=== PATIENT | male | born 1975 | race Caucasian/White ===

== ENCOUNTER 2016-09-03 15:04 | Emergency (ER) | payer OTHER ==
[2016-09-03 15:24] VITALS: BP 110/78; PULSE 77; TEMP 98; BMI 26.6
[2016-09-03 16:09] LABS: PH,URINE 5.5 (5.0-8.0); URINE APPEARANCE CLEAR; URINE BILIRUBIN 1+ (NEGATIVE); URINE COLOR LT. YELLOW; URINE GLUCOSE (UA) NEGATIVE (NEGATIVE); URINE KETONE NEGATIVE (NEGATIVE); URINE LEUK ESTERASE NEGATIVE (NEGATIVE); URINE NITRITE NEGATIVE (NEGATIVE); URINE PROTEIN NEGATIVE (NEGATIVE); URINE UROBILINOGEN 0.2 E.U/dl E.U./dl (0.2-1.0)
--- NOTE | 2016-09-03 16:44 | PDOC ---
[id number] UTI Time Seen by Provider: 09/03/16 15:50 History Source: Patient Exam Limitations: No Limitations - History of Present Illness Travel History: No Initial Comments: 09/03/16 17:08 Patient is here with complaints of 3 years of dysuria. States has been unable to hold his urine which is progressively gotten worse over the past few months. Denies pain or burning with urine, denies any foul smell or discoloration, denies bleeding or dark discoloration. Denies any purulent drainage or history of STDs. Partner/ is asymptomatic. No history of kidney stone or any urinary problems. States is had multiple issues with low back spondylosis and disc herniations. Suffers from intermittent bouts of sciatica and has never been told he has any neurologic dysfunction due to same. Has never been evaluated for prostatitis, or seen a urologist. Denies fever, nausea vomiting diarrhea or constipation. Has taken no medication for relief of any of the symptoms. Timing/Duration: reports: getting worse, changing over time Quality: reports: mild, fullness, sharpness Pain Radiation: reports: no radiation Activities at Onset: reports: none Past History - Travel Traveled outside of the country in the last 30 days: No Close contact w/someone who was outside of country & ill: No - Past Medical History Allergies/Adverse Reactions: Allergies Allergy/AdvReac Type Severity Reaction Status Date / Time No Known Allergies Allergy Verified 09/03/16 15:24 Home Medications: Ambulatory Orders NK [No Known Home Medication] 06/06/16 Seizures: Yes - Surgical History Appendectomy: Yes - Immunization History Immunization Up to Date: Yes - Psycho/Social/Smoking Cessation Hx Anxiety: Yes Suicidal Ideation: No Smoking History: Current every day smoker Have you smoked in the past 12 months: No Number of Cigarettes Smoked Daily: 10 Information on smoking cessation initiated: No Hx Alcohol Use: No Drug/Substance Use Hx: No Substance Use Type: None Abd/GI Specific PMHX - Complaint Specific PMHX GERD: No Review of Systems - Review of Systems Able to Perform ROS?: Yes Is the patient limited Andorran proficient: Yes Constitutional: Yes: See HPI. No: Symptoms Reported, Fever HEENTM: No: Symptoms Reported Respiratory: No: Symptoms reported Cardiac (ROS): No: Symptoms Reported : Yes: Symptoms Reported, See HPI, Frequency. No: Hematuria, Incontinence, Pain Integumentary: Yes: Symptoms Reported *Physical Exam - Vital Signs Last Vital Signs Temp Pulse Resp BP Pulse Ox 98 F 77 18 110/78 97 09/03/16 15:16 09/03/16 15:16 09/03/16 15:16 09/03/16 15:16 09/03/16 15:16 - Physical Exam General Appearance: Yes: Nourished, Appropriately Dressed. No: Apparent Distress HEENT: positive: ZHANG, Normal ENT Inspection, TMs Normal, Pharynx Normal Neck: positive: Supple. 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 , will refer to orthopedist for further evaluation of neurogenic bladder and urologist for thorough evaluation for any other anatomical issue *DC/Admit/Observation/Transfer Diagnosis at time of Disposition: Dysuria - Discharge Dispostion Disposition: HOME Condition at time of disposition: Stable Admit: No - Referrals Referrals: Rashaun Rodriguez MD [Staff Physician] - James Li MD., [Staff Physician] - - Patient Instructions Printed Discharge Instructions: DI for Dysuria -- Adult Additional Instructions: Continue hydration Follow-up with orthopedist for thorough evaluation of neurologic statics of spine and bladder Consider urology (Dr. Li) for evaluation once cleared by orthopedist
[2016-09-03 20:50] LABS: URINE BLOOD 1+ (NEGATIVE)
[2016-09-03 22:45] LABS: CALCIUM OXALATE CRYSTALS FEW /hpf (NONE SEEN); URINE RBC 0-2 /hpf (0-3); URINE WBC 0-3 /hpf (3-5)
== END 2016-09-03 17:39 | disposition home or self-care (01) ==
LOC: JERFT 15:04
DX: R30.0 Dysuria (principal)
CPT/HCPCS: 81003; 81015; 99281-25

== ENCOUNTER 2017-04-21 14:01 | Emergency (ER) | payer OTHER ==
[2017-04-21 14:06] VITALS: BP 114/74; PULSE 65; TEMP 98; BMI 26.6
--- NOTE | 2017-04-21 15:13 | PDOC ---
History of Present Illness - General Chief Complaint: Pain, Acute Stated Complaint: SHOULDER PAIN Time Seen by Provider: 04/21/17 14:39 History Source: Patient Exam Limitations: No Limitations - History of Present Illness Initial Comments: 04/21/17 15:03 CHIEF COMPLAINT: Left shoulder pain only with adduction HISTORY OF PRESENT ILLNESS: Patient is a 42-year-old male presents emergency department for pain to left shoulder states when he moves or adducts his arm notes a clicking sound. Denies any injury. No deformity. Occurred: reports: yesterday Severity: reports: moderate Upper Extremity Pain Location: left: shoulder Method of Injury: reports: unknown Modifying Factors: improves with: None Past History - Past Medical History Allergies/Adverse Reactions: Allergies Allergy/AdvReac Type Severity Reaction Status Date / Time No Known Allergies Allergy Verified 04/21/17 14:07 Home Medications: Ambulatory Orders Ibuprofen [Motrin -] 600 mg PO QID #28 tablet 04/21/17 Seizures: Yes - Surgical History Appendectomy: Yes - Immunization History Immunization Up to Date: Yes - Psycho/Social/Smoking Cessation Hx Anxiety: Yes Suicidal Ideation: No Smoking History: Current every day smoker Have you smoked in the past 12 months: No Number of Cigarettes Smoked Daily: 10 Information on smoking cessation initiated: No Hx Alcohol Use: No Drug/Substance Use Hx: No Substance Use Type: None Review of Systems - Review of Systems Constitutional: No: Symptoms Reported HEENTM: No: Symptoms Reported Respiratory: No: Symptoms reported Cardiac (ROS): No: Symptoms Reported ABD/GI: No: Symptoms Reported : No: Symptoms Reported Musculoskeletal: Yes: Joint Pain. No: Joint Swelling, Muscle Pain, Muscle Weakness, Neck Pain, Joint Stiffness Integumentary: No: Symptoms Reported, Bruising, Erythema Neurological: No: Symptoms reported, Paresthesia, Tingling, Tremors All Other Systems: Reviewed and Negative *Physical Exam - Vital Signs Last Vital Signs Temp Pulse Resp BP Pulse Ox 98 F 65 18 114/74 98 04/21/17 14:04 04/21/17 14:04 04/21/17 14:04 04/21/17 14:04 04/21/17 14:04 - Physical Exam General Appearance: Yes: Appropriately Dressed. No: Apparent Distress Neck: negative: Tender lateral, Tender midline Respiratory/Chest: positive: Lungs Clear, Normal Breath Sounds. negative: Respiratory Distress, Accessory Muscle Use Cardiovascular: positive: Regular Rhythm, Regular Rate Lymphatic: negative: Adenopathy Musculoskeletal: positive: Normal Inspection. negative: Decreased Range of Motion, Muscle Spasm, Vertebral Tenderness Extremity: positive: Normal Capillary Refill, Normal Inspection, Normal Range of Motion (with associalted pain with adduction). negative: Delayed Capillary Refill, Swelling, Erythema, Inflammation Integumentary: positive: Normal Color, Dry. negative: Erythema, Swelling, Ecchymosis, Bruising Neurologic: positive: Alert, Normal Mood/Affect ED Treatment Course - RADIOLOGY Radiology Studies Ordered: Category Date Time Status SHOULDER-LEFT [RAD] Stat Radiology 04/21/17 14:41 Taken Medical Decision Making - Medical Decision Making 04/21/17 15:15 A/P: Patient with left shoulder pain only associated with certain movements patient with pain noted when crossing over midline of body, adduction. And to x-ray to rule out acute injury, highly suspicious for tendinitis there is no deformity which would be suggestive of a dislocation. 04/21/17 16:18 X-ray demonstrates posttraumatic ostiolysis of the distal clavicle. There is no acute bony injury. Will place patient in arm sling to follow-up with orthopedics. Anti-inflammatories for pain. I discussed the physical exam findings, ancillary test results and final diagnoses with the patient. I answered all of the patient's questions. The patient was satisfied with the care received and felt comfortable with the discharge plan and treatment plan. The patient will call orthopedics to arrange follow-up and will return to the Emergency Department with any new, persistent or worsening symptoms. 04/21/17 17:03 *DC/Admit/Observation/Transfer Diagnosis at time of Disposition: Shoulder pain Qualifiers: Chronicity: acute Laterality: left Qualified Code(s): M25.512 - Pain in left shoulder - Discharge Dispostion Disposition: HOME Condition at time of disposition: Stable Admit: No - Prescriptions Prescriptions: Ibuprofen [Motrin -] 600 mg PO QID #28 tablet - Referrals Referrals: Robin Parish MD [Staff Physician] - - Patient Instructions Printed Discharge Instructions: DI for Shoulder Pain Additional Instructions: 1. Please return to the emergency department with any redness, swelling, increased pain, or any other concerns. 2. Keep splint on. 3. Please follow up in the office of Dr. Bernard within a week if pain persists. 4. No weightbearing 5. Ice and elevate when at rest. 6. Anti-inflammatories for pain
== END 2017-04-21 16:37 | disposition home or self-care (01) ==
LOC: JERFT 14:01
DX: M25.512 Pain in left shoulder (principal); Z86.69 Personal history of other diseases of the nervous system and sense organs
CPT/HCPCS: 36415; 73030-TC-LT; 86803; 99281-25

== ENCOUNTER 2018-01-17 19:26 | Emergency (ER) | payer OTHER ==
[2018-01-17 19:37] VITALS: BP 155/108; PULSE 68; TEMP 98; BMI 29.5
--- NOTE | 2018-01-17 19:45 | PDOC ---
Rapid Medical Evaluation Chief Complaint: Urinary Problem Time Seen by Provider: 01/17/18 19:40 Medical Evaluation: Allergies Allergy/AdvReac Type Severity Reaction Status Date / Time No Known Allergies Allergy Verified 01/17/18 19:35 Vital Signs Temp Pulse Resp BP Pulse Ox 98 F 68 18 155/108 99 01/17/18 19:35 01/17/18 19:35 01/17/18 19:35 01/17/18 19:35 01/17/18 19:35 01/17/18 19:40 I have performed a brief in-person evaluation of this patient. The patient presents with a chief complaint of: dysuria/ inability to oid x 1 year worsening- told had "vein enlarged in left testicle" but never f/u wioth urology. Denies fevers or pain and burning/ + frequency Pertinent physical exam findings:Pale/ appears uncomfortable I have ordered the following: U/A / Culture , uS testicles /scrotum The patient will proceed to the ED for further evaluation 01/17/18 19:45
[2018-01-17 20:39] LABS: URINE APPEARANCE CLEAR; URINE BILIRUBIN NEGATIVE (<2.0 mg/dL); URINE BLOOD NEGATIVE (NEGATIVE); URINE COLOR LTYELLOW; URINE GLUCOSE (UA) NEGATIVE (NEGATIVE); URINE KETONE NEGATIVE (NEGATIVE); URINE LEUK ESTERASE NEGATIVE (NEGATIVE); URINE NITRITE NEGATIVE (NEGATIVE); URINE PROTEIN NEGATIVE (NEGATIVE); URINE UROBILINOGEN NEGATIVE mg/dL (0.2-1.0)
--- NOTE | 2018-01-17 22:21 | PDOC ---
History of Present Illness <YvesJose - Last Filed: 01/17/18 22:53> - General History Source: Patient Exam Limitations: No Limitations - History of Present Illness Initial Comments: 01/17/18 22:46 The patient is a 42 year old male with a significant PMH of ruptured lumbar disc and anxiety who presents to the emergency department with urinary urgency for 6 months. The patient reports that his urinary urgency is associated with sharp and constant pain in his left testicle and left leg. The patient reports that his left sided pain is worsened with walking and lifting. The patient reports that the pain starts from his left foot and radiates up his left leg to his left testicle and lower back. The patient states that his symptoms have worsened in the past month. He states that he has a ultrasound done 6 months ago by which he was found to have a varicose vein surrounding his testicle. The patient denies any other urinary symptoms. He denies fever, chills, nausea, vomit, diarrhea and constipation.The patient denies chest pain, shortness of breath, headache and dizziness. The patient denies any other complaints <Juan Diego Hendrix - Last Filed: 01/18/18 00:29> - General Chief Complaint: Urinary Problem Stated Complaint: PAIN Time Seen by Provider: 01/17/18 19:40 Past History - Past Medical History COPD: No Seizures: Yes Other medical history: back problems - Surgical History Appendectomy: Yes - Immunization History Immunization Up to Date: Yes - Suicide/Smoking/Psychosocial Hx Smoking History: Current every day smoker Have you smoked in the past 12 months: No Number of Cigarettes Smoked Daily: 10 Information on smoking cessation initiated: No Hx Alcohol Use: No Drug/Substance Use Hx: No Substance Use Type: None <Jose Marinelli - Last Filed: 01/17/18 22:53> <Juan Diego Hendrix - Last Filed: 01/18/18 00:29> - Past Medical History Allergies/Adverse Reactions: Allergies Allergy/AdvReac Type Severity Reaction Status Date / Time No Known Allergies Allergy Verified 01/17/18 19:35 Home Medications: Ambulatory Orders Ibuprofen [Motrin -] 600 mg PO QID #28 tablet 04/21/17 Review of Systems - Review of Systems Able to Perform ROS?: Yes Comments:: 01/17/18 22:47 ROS: A complete review of 10 out of 10 review of systems is taken and is negative apart from what is previously mentioned below and in the HPI. <Juan Diego Hendrix - Last Filed: 01/18/18 00:29> *Physical Exam - Vital Signs Last Vital Signs Temp Pulse Resp BP Pulse Ox 98 F 68 18 155/108 99 01/17/18 19:35 01/17/18 19:35 01/17/18 19:35 01/17/18 19:35 01/17/18 19:35 <Jose Marinelli - Last Filed: 01/17/18 22:53> - Vital Signs Last Vital Signs Temp Pulse Resp BP Pulse Ox 98 F 68 18 155/108 99 01/17/18 19:35 01/17/18 19:35 01/17/18 19:35 01/17/18 19:35 01/17/18 19:35 - Physical Exam Comments: 01/17/18 22:47 Vitals: Triage vital signs reviewed General Appearance: No acute distress, well nourished, well developed Head: Atraumatic Chest Wall: Nontender Cardiac: Regular rate and rhythm, no murmurs, no rubs, no gallops Lungs: Clear to auscultation bilateral, good air movement bilaterally Abdomen: Soft, nondistended, normal bowel sounds, nontender to palpation Genitourinary: Rectal: normal tone, no sensory loss, normal prostate. Extremities: Full range of motion to all extremities, no cyanosis, clubbing, or edema Skin: Warm and dry, no rashes or lesions, no rash, no petechiae Neuro: AOX3; Cranial Nerves 2-12 grossly intact, Strength intact to all extremities, Sensation intact to all extremities, Deep tendon normal and intact. gait normal Psych: Normal mood, normal affect <Juan Diego Hendrix - Last Filed: 01/18/18 00:29> ED Treatment Course - ADDITIONAL ORDERS Additional order review: Laboratory Results 01/17/18 19:49 Urine Color Ltyellow Urine Appearance Clear Urine pH 5.0 Ur Specific [place] 1.017 Urine Protein Negative Urine Glucose (UA) Negative Urine Ketones Negative Urine Blood Negative Urine Nitrite Negative Urine Bilirubin Negative Urine Urobilinogen Negative Ur Leukocyte Esterase Negative <Jose Marinelli - Last Filed: 01/17/18 22:53> - ADDITIONAL ORDERS Additional order review: Laboratory Results 01/17/18 19:49 Urine Color Ltyellow Urine Appearance Clear Urine pH 5.0 Ur Specific [place] 1.017 Urine Protein Negative Urine Glucose (UA) Negative Urine Ketones Negative Urine Blood Negative Urine Nitrite Negative Urine Bilirubin Negative Urine Urobilinogen Negative Ur Leukocyte Esterase Negative <Juan Diego Hendrix - Last Filed: 01/18/18 00:29> Medical Decision Making - Medical Decision Making 01/17/18 22:34 42 years old with 6 month history of sensation of urinary urgency as well as a intermittent pain with ambulation that radiates from his heel to his buttock. Patient denies any fever patient denies any weight loss denies any recent IV drug use. Patient was seen and evaluated for similar 6 months ago had an ultrasound performed which demonstrated mild hydrocele was instructed to follow up with urology which he did not. He denies any incontinence he denies any weakness numbness in his lower extremities His testicular examination demonstrated no hernia, no tenderness to palpation no swelling no mass no evidence of torsion His musculoskeletal back exam demonstrates piriformis tenderness his neurologic examination was intact distally. His reflexes were intact distally in his rectal examination demonstrated good tone and no S1-S2 anesthesia There were no red flags at this time on patient's chronicity of patients history and his physical examination. Most likely patient's symptomatology are related to radiculopathy from a low back issue I have provided the patient with C-spine follow-up as well as urology follow-up I provided the patient with 3 days off from work. He will make phone calls tomorrow morning to arrange follow-up. Next, the need for follow-up, strict return instructions discussed with patient. <Jose Marinelli - Last Filed: 01/17/18 22:53> - Medical Decision Making 01/17/18 22:49 The patient is a 42 year old male with a significant PMH of ruptured lumbar disc and anxiety who presents to the emergency department with urinary urgency for 6 months. The patient reports that his urinary urgency is associated with sharp and constant pain in his left testicle and left leg. The patient reports that his left sided pain is worsened with walking and lifting. The patient reports that the pain starts from his left foot and radiates up his left leg to his left testicle and lower back. The patient states that his symptoms have worsened in the past month. He states that he has a ultrasound done 6 months ago by which he was found to have a varicose vein surrounding his testicle. The patient denies any other urinary symptoms. He denies fever, chills, nausea, vomit, diarrhea and constipation.The patient denies chest pain, shortness of breath, headache and dizziness. The patient denies any other complaints The patient will get an ultrasound, referral for a urologist and neurologist and will get prescription for ainti inflammatory medication <Juan Diego Hendrix - Last Filed: 01/18/18 00:29> *DC/Admit/Observation/Transfer - Discharge Dispostion Decision to Admit order: No <Jose Marinelli - Last Filed: 01/17/18 22:53> - Attestations Scribe Attestion: 01/17/18 22:51 Documentation prepared by Juan Diego Hendrix, acting as site medical director for Jose Marinelli MD. <Juan Diego Hendrix - Last Filed: 01/18/18 00:29> Diagnosis at time of Disposition: Low back pain Qualifiers: Chronicity: unspecified Back pain laterality: left Sciatica presence: with sciatica Sciatica laterality: sciatica of left side Qualified Code(s): M54.42 - Lumbago with sciatica, left side - Discharge Dispostion Disposition: HOME Condition at time of disposition: Stable - Referrals Referrals: Obey Brar MD, FA[facility] [Staff Physician] - James Li MD., [Staff Physician] - - Patient Instructions Printed Discharge Instructions: Sciatica Additional Instructions: Rest. Ice lower back 20 minutes on 20 minutes off. Take 2 tabs Aleve twice a day for the next 3 days. Follow-up with spine within 1-2 days as well as with Dr. Olsen urology. Return to the emergency department immediately for any weakness numbness bowel or bladder incontinence or for any concerns. - Post Discharge Activity Forms/Work/School Notes: Back to Work
== END 2018-01-17 22:53 | disposition home or self-care (01) ==
LOC: JER 19:26
DX: M54.42 Lumbago with sciatica, left side (principal); Z86.69 Personal history of other diseases of the nervous system and sense organs; F17.210 Nicotine dependence, cigarettes, uncomplicated
CPT/HCPCS: 76870-TC; 81003; 87086; 99281-25

== ENCOUNTER 2019-02-28 12:41 | Inpatient (IN) | payer OTHER ==
--- NOTE | 2019-02-28 12:51 | PDOC ---
Rapid Medical Evaluation Time Seen by Provider: 02/28/19 12:50 Medical Evaluation: Allergies Allergy/AdvReac Type Severity Reaction Status Date / Time No Known Allergies Allergy Verified 01/17/18 19:35 02/28/19 12:51 I have performed a brief in-person evaluation of this patient. The patient presents with a chief complaint of: L 3rd finger pain/swelling and erythema x 1 week. Also noted pus to site yesterday. No f/c. 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 States he was seen at [facility] last week for L 3rd digit and was not started on abx. States sxs have been worsening. Pertinent physical exam findings:L 3rd digit diffusely swollen, erythematous and ttp w/ minimal BRB visualized at tuft, no nail seen (2/2 prior injury per pt ) s/p L 5th digit amputation I have ordered the following:labs/XR The patient will proceed to the ED for further evaluation. Discharge Disposition - Diagnosis Cellulitis, finger Qualifiers: Laterality: right Qualified Code(s): L03.011 - Cellulitis of right finger - Referrals - Patient Instructions - Post Discharge Activity
[2019-02-28] MEDS ORDERED: VANCOMYCIN 1 GM in D5W (PRE-DOCKED) 1,000 MG/250 ML IVPB ONE (14:07)
[2019-02-28] MEDS ORDERED: AMPICILLIN NA/SULBACTAM NA 3 GM in SODIUM CHLORIDE 100 ML IVPB ONE (14:07)
--- NOTE | 2019-02-28 14:07 | PDOC ---
History of Present Illness - General Chief Complaint: Redness To Affected Area Stated Complaint: EDEMA Time Seen by Provider: 02/28/19 12:50 - History of Present Illness Initial Comments: 02/28/19 13:59 43yo M hx L 5th digit amputation and L 2/3/4 digit nerve surgeries w/hardware and residual numbness presents from home c/o L 3rd finger swelling and redness. Pt had multiple surgeries of L digits, with last one over a year ago, at [facility]. Pt has appt with hand surgeon on . Pt did have a complication of L 2nd finger infection, resolved with abx over a year ago. Now pt has had swelling and redness of L 3rd finger x1wk, worsening, spreading to dorsal hand. Pt has chronic loss of sensation in digits so denies pain but now has pain to dorsum of hand. Pt also hit his hand on the counter a few days ago and the nail of his 3rd digit came off with mild bleeding, stopped now. Pt has been cleaning the finger with betadyne. Denies F/C, N/V, CP, SOB, weakness, N/T, confusion, abdominal pain. Takes ibuprofen for pain in dorsum of hand. Does not want to be admitted. Past History - Past Medical History Allergies/Adverse Reactions: Allergies Allergy/AdvReac Type Severity Reaction Status Date / Time No Known Allergies Allergy Verified 02/28/19 12:58 Home Medications: Ambulatory Orders Bupropion HCl [Wellbutrin Xl -] 150 mg PO DAILY #30 tab.sr.24h 03/09/18 Methadone HCl 150 mg PO DAILY 03/09/18 COPD: No Seizures: Yes - Surgical History Appendectomy: Yes - Immunization History Immunization Up to Date: Yes - Suicide/Smoking/Psychosocial Hx Smoking History: Unknown if ever smoked Have you smoked in the past 12 months: No Number of Cigarettes Smoked Daily: 10 Information on smoking cessation initiated: No Hx Alcohol Use: No Drug/Substance Use Hx: No Substance Use Type: None Review of Systems - Review of Systems Comments:: 02/28/19 16:55 Constitutional: Negative for chills, fever, fatigue. HENT: Negative for sore throat, rhinorrhea, congestion. Eyes: Negative for visual disturbance. Respiratory: Negative for shortness of breath, cough, and wheezing. Cardiovascular: Negative for chest pain, palpitations, and leg swelling. Gastrointestinal: Negative for abdominal pain, blood in stool, constipation, diarrhea, nausea, and vomiting. Genitourinary: Negative for dysuria, flank pain, and hematuria. Musculoskeletal: Positive for L 5th digit swelling and redness and avulsed nail , L dorsum hand redness/swelling/pain, L 5th digit amputation (surgical >1yr ago ; well-healing). Negative for myalgias, back pain, and neck pain. Skin: Negative for rash. Neurological: Negative for light-headedness, dizziness, syncope, weakness, numbness and headaches. Psychiatric/Behavioral: Negative for behavioral problems and confusion. *Physical Exam - Vital Signs Last Vital Signs Temp Pulse Resp BP Pulse Ox 88 16 125/76 100 02/28/19 12:53 02/28/19 12:53 02/28/19 12:53 02/28/19 12:53 - Physical Exam Comments: 02/28/19 14:00 Gen: Alert, NAD, comfortable-appearing. HEENT: PERRL, EOMI, MMM, NCAT. No conjunctival pallor. Sclera are non-icteric. Oropharynx is clear. CV: Regular rate and rhythm. No murmurs, rubs, or gallops. PULM: No resp distress. CTAB, no wheezes, rales, or rhonchi. ABD: soft, NT/ND, no rebound tenderness or guarding, no CVA tenderness. BACK: No TTP of c/t/l-spine. No step-offs or deformities. MSK: 2+ pulses in all extremities. LEFT HAND: s/p 5th digit amputation at MCP. 3rd digit w/circumferential erythema and soft tissue edema, distal induration, complete nail avulsion, and bloody/purulent abrasion at fingertip. Proximal tracking of erythema over L dorsum hand to wrist. Full ROM of wrist and all 3rd digit. Loss of sensation in 3rd digit (baseline). TTP of dorsum hand. Normal capillary refill in 3rd digit. NEURO: AAOx3. PERRL. No gross CN deficits. Strength and sensation grossly intact throughout, except as noted in L hand. EXTREMITIES: See LEFT HAND. No cyanosis. No clubbing. No LE edema. PSYCH: Normal mood and thought pattern. SKIN: Warm and dry. Normal capillary refill. No jaundice. 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 Pt has baseline loss of sensation to digit, but has TTP to dorsum of L hand. Intact cap refill, full ROM. No concern for flexor tendinitis. Baseline neurologic compromise - no sensation in L 3rd digit. No vascular compromise. High concern for cellulitis vs OM - XR, labs, admit for IV abx, consult Hand. Hemodynamically stable, afebrile. -Labs: CBC, CMP, ESR, CRP -Imaging: XR L 3rd digit -Vanc and Unasyn -Consult hand -Dispo: pt refuses to be admitted; discuss later XR: deformity with possible postsurgical change and/or some destruction involving the distal phalanx. There is some swelling. If concerned about OM, 3= phase bone scan pr MR is suggested. 5th digit amputation w/base of proximal phalanc remaining. Notes reviewed. WBC 9.2, H/H 11.4/33.1, CRP 3.8, pESR. Discussed results with pt and our recommendation to be admitted for IV abx. Pt agrees and will stay. Pt does not want to be transferred to [facility]. 02/28/19 15:[address] 40[address] Hand paged Dr Manav Burton. 02/28/19 16:[address] Burton. Agrees with IV abx. Will see on floor. MDMB Admitting. 02/28/19 17:14 Signed out to admitting team. Attending Dr. Call. *DC/Admit/Observation/Transfer Diagnosis at time of Disposition: Cellulitis, finger Qualifiers: Laterality: right Qualified Code(s): L03.011 - Cellulitis of right finger - Discharge Dispostion Condition at time of disposition: Stable Decision to Admit order: Yes - Referrals - Patient Instructions - Post Discharge Activity
[2019-02-28] MEDS ORDERED: VANCOMYCIN 1 GRAM (PRE-DOCKED) 1,000 MG/250 ML BAG IVPB ONE (14:26)
[2019-02-28 14:33] LABS: BASO % 0.6 % (0-2.0); EOS % 3.3 % (0-4.5); HEMATOCRIT 33.1 % (35.4-49); HEMOGLOBIN 11.4 GM/dL (11.7-16.9); LYMPH % 29.4 % (8-40); MCH 29.6 pg (25.7-33.7); MCHC 34.5 g/dl (32.0-35.9); MEAN CELL VOLUME 85.7 fl (80-96); MEAN PLT VOLUME 6.7 fl (7.5-11.1); NEUT % 60.7 % (42.8-82.8); PLATELET COUNT 294 K/MM3 (134-434); RBC 3.86 M/mm3 (4.00-5.60); RDW 14.2 % (11.9-15.9); WHITE BLOOD COUNT 9.2 K/mm3 (4.0-10.0)
[2019-02-28 15:03] LABS: ALBUMIN 3.6 g/dl (3.4-5.0); BILIRUBIN,TOTAL 0.2 mg/dL (0.2-1); BLOOD UREA NITROGEN 9.4 mg/dL (7-18); CALCIUM 8.8 mg/dL (8.5-10.1); CREATININE 0.9 mg/dL (0.55-1.3); POTASSIUM 4.3 mmol/L (3.5-5.1); TOT PROT 6.7 g/dl (6.4-8.2)
--- NOTE | 2019-02-28 15:29 | PDOC ---
Attending Attestation - Resident Resident Name: Gena Gardner - ED Attending Attestation I have performed the following: I have examined & evaluated the patient, The case was reviewed & discussed with the resident, I agree w/resident's findings & plan - HPI HPI: 02/28/19 15:24 43-year-old male with history of left hand injury requiring reconstruction status post left fifth digit amputation and neurovascular reconstruction of third and fourth digits presents now with progressive redness and swelling and pain and purulence of the third digit over the last week. No fevers or chills, sustained an injury about 10 days ago secondary to decreased sensation, had avulsion of the nail, and has had progressive infection since then. Spoke to his hand surgeon [facility], referred to the emergency department. - Physicial Exam PE: 02/28/19 15:26 Vital signs stable. Well-appearing, alert Left hand: Status post amputation of left fifth digit at MCP. Circumferential erythema and soft tissue swelling of the third digit with induration distally and complete nail avulsion, abrasion at the fingertip with blood/pus oozing. Tracking cellulitis proximally over the dorsal aspect of the left hand to the wrist, full range of motion of wrist without joint effusion. Able to extend and flex the third digit, has decreased sensation so unable to assess tenderness. - Medical Decision Making 02/28/19 15:27 43-year-old male with history of reconstructive hand surgery presents with left third digit cellulitis tracking to the hand, has hardware in that digit as nerve conduit, no systemic symptoms. Possible osteomyelitis. Labs sent Left hand x-ray with bony changes that are either postoperative or consistent with osteomyelitis Antibiotic coverage with vancomycin and Unasyn Hand consult - patient refuses to be transferred to [facility] because he lives nearby Admission for IV antibiotics 02/28/19 16:[address] Burton, will see patient in consultation. proceed with [facility] admission.
[2019-02-28] MEDS ORDERED: ACETAMINOPHEN 325 MG TABLET (FP) PO PRN ×2 (17:13→18:26)
--- NOTE | 2019-02-28 17:55 | HP ---
Admitting History and Physical - Primary Care Physician PCP: n/a - Admission Chief Complaint: left middle finger pain History of Present Illness: 43 year old male history of IVDA, history of left hand injury requiring reconstruction status post left fifth digit amputation and neurovascular reconstruction of third and fourth digits requiring hardware presents after a 3 day history of left third digit swelling, drainage, and pain. He was unable to flex finger so he came to ED for further evaluation. Patient is unhappy with his surgery at [facility] so he decided to come here. He denies fever /chills, nausea vomiting. He stats for the past few weeks left hand has been numb but he wasn't sure if that was old or new. History Source: Patient Limitations to Obtaining History: No Limitations - Past Medical History Infectious Disease: Yes: Other Psych: Yes: Addictions (Hx IVDA) - Past Surgical History Past Surgical History: Yes: Amputation (lfet fifth finger and tip of left middle finger), Appendectomy Additional Past Surgical History: left hand nerve surgeries - Smoking History Smoking history: Current every day smoker Have you smoked in the past 12 months: Yes Aproximately how many cigarettes per day: 10 If you are a former smoker, when did you quit?: 1 PPD daily - Alcohol/Substance Use Hx Alcohol Use: No History of Substance Use: reports: Heroin Date of Last Use: 08/16/12 - Social History Usual Living Arrangement: Yes: With Spouse ADL: Independent Occupation: [employer] History of Recent Travel: No Home Medications - Allergies Allergies/Adverse Reactions: Allergies Allergy/AdvReac Type Severity Reaction Status Date / Time No Known Allergies Allergy Verified 02/28/19 12:58 - Home Medications Home Medications: Ambulatory Orders Bupropion HCl [Wellbutrin Xl -] 150 mg PO DAILY #30 tab.sr.24h 03/09/18 Methadone HCl 150 mg PO DAILY 03/09/18 Family Disease History - Family Disease History Family History: Unremarkable Review of Systems - Review of Systems Constitutional: reports: No Symptoms Eyes: reports: No Symptoms HENT: reports: No Symptoms Neck: reports: No Symptoms Cardiovascular: reports: No Symptoms Respiratory: reports: No Symptoms Gastrointestinal: reports: No Symptoms Genitourinary: reports: No Symptoms Breasts: reports: No Symptoms Reported Musculoskeletal: reports: Joint Pain, Joint Swelling (left middle finger pain and swelling) Integumentary: reports: Erythema (left hand and wrist) Neurological: reports: No Symptoms Endocrine: reports: No Symptoms Hematology/Lymphatic: reports: No Symptoms Psychiatric: reports: No Symptoms Physical Examination Vital Signs: Vital Signs Temperature Pulse Rate 88 02/28/19 12:53 Respiratory Rate 16 02/28/19 12:53 Blood Pressure 125/76 02/28/19 12:53 O2 Sat by Pulse Oximetry (%) 100 02/28/19 12:53 Constitutional: Yes: Well Nourished, Poor Hygeine, Other (nodding off) Neck: Yes: WNL, Supple, Trachea Midline Cardiovascular: Yes: WNL, Regular Rate and Rhythm Respiratory: Yes: WNL, Regular, CTA Bilaterally Gastrointestinal: Yes: WNL, Normal Bowel Sounds, Soft Extremities: Yes: Other (left middle finger amputated nail bed, erythematous, edematous, unable to flex, amputated left 5th finger erythema and edema extending to left hand and wrist, good pulses) Edema: Yes Edema: LUE: 1+ Peripheral Pulses WNL: Yes Labs: CBC, BMP 02/28/19 14:10 02/28/19 14:10 Imaging - Results X-ray: Report Reviewed Problem List - Problems (1) Cellulitis, finger Code(s): L03.019 - CELLULITIS OF UNSPECIFIED FINGER Qualifiers: Laterality: right Qualified Code(s): L03.011 - Cellulitis of right finger (2) Methadone maintenance therapy patient Code(s): F11.20 - OPIOID DEPENDENCE, UNCOMPLICATED Assessment/Plan 43 year old male with a PMHx of reconstructive hand surgery requiring hardware, presents with left third digit cellulitis 1) Left third digit cellulitis -xray either post op changes or osteomyelitis -rule out osteomyelitis -check inflammatory markers -check MRI -IV abx-vanco and unasyn -wound cultures -pain control -Dr. Burton (plastic and hand surgery) was consulted, ED physician spoke with him and he confirmed he will be seeing patient -ID consult 2) Methadone dependence -confirm dose in AM DVT ppx -hep subq
[2019-02-28] MEDS: SODIUM CHLORIDE 1,000 ML IV SCH (18:13)
[2019-02-28] MEDS ORDERED: HEPARIN NA (PORCINE) 5,000 UNITS/ML 1ML VIAL ONE (20:19)
[2019-02-28] MEDS: AMPICILLIN NA/SULBACTAM NA 3 GM in SODIUM CHLORIDE 100 ML IVPB SCH (20:33)
[2019-02-28] MEDS: HEPARIN NA (PORCINE) 5,000 UNITS/ML 1ML VIAL SQ SCH (21:38)
[2019-03-01 02:40] VITALS: BMI 32.5
[2019-03-01] MEDS: AMPICILLIN NA/SULBACTAM NA 3 GM in SODIUM CHLORIDE 100 ML IVPB SCH ×4 (03:22→20:24)
[2019-03-01] MEDS ORDERED: PT OWN MED DRAWER 7, Y5N ONE ×3 (06:21→20:03)
--- NOTE | 2019-03-01 08:48 | PN ---
Physical Exam: SUBJECTIVE: Patient seen and examined. Laying in bed with street clothes on with no signs or symptoms of distress. Pt states he is anxious and asks for Ativan, and that he smokes a pack a day and wants a nicotine patch. He denies fever/chills, nausea vomiting. OBJECTIVE: Vital Signs Period Temp Pulse Resp BP Sys/Cho Pulse Ox Last 24 Hr 97.8 F-97.8 F 61-88 16-20 114-147/62-80 100-100 Eyes: reports: No Symptoms HENT: reports: No Symptoms Neck: reports: No Symptoms Cardiovascular: reports: No Symptoms Respiratory: reports: No Symptoms Gastrointestinal: reports: No Symptoms Genitourinary: reports: No Symptoms Integumentary: reports: Wound on the tip of left 3rd finger, two open areas, no active bleeding, no puss expressed. Warm, erythema, and edematous Neurological: reports: No Symptoms Endocrine: reports: No Symptoms Hematology/Lymphatic: reports: No Symptoms Psychiatric: reports: No Symptoms Laboratory Results - last 24 hr 02/28/19 02/28/19 02/28/19 14:10 14:10 14:10 WBC 9.2 RBC 3.86 L Hgb 11.4 L Hct 33.1 L MCV 85.7 MCH 29.6 MCHC 34.5 RDW 14.2 Plt Count 294 MPV 6.7 L D Absolute Neuts (auto) 5.5 Neutrophils % 60.7 D Lymphocytes % 29.4 D Monocytes % 6.0 Eosinophils % 3.3 Basophils % 0.6 Nucleated RBC % 0 ESR 40 H Sodium 137 Potassium 4.3 Chloride 106 Carbon Dioxide 28 Anion Gap 4 L BUN 9.4 Creatinine 0.9 Est GFR (CKD-EPI)AfAm 121.67 Est GFR (CKD-EPI)NonAf 104.98 Random Glucose 154 H Calcium 8.8 Total Bilirubin 0.2 AST 24 ALT 42 Alkaline Phosphatase 96 C-Reactive Protein 3.8 H Total Protein 6.7 Albumin 3.6 Active Medications Generic Name Dose Route Start Last Admin Trade Name Freq PRN Reason Stop Dose Admin Acetaminophen 650 mg 02/28/19 17:13 Tylenol - PO Q4H PRN MILD PAIN Bupropion HCl 150 mg 03/01/19 10:00 Wellbutrin Xl - PO DAILY JOSEPH Heparin Sodium (Porcine) 5,000 unit 02/28/19 22:00 02/28/19 21:38 Heparin - SQ 5,000 unit BID JOSEPH Administration Sodium Chloride 1,000 mls @ 100 mls/hr 02/28/19 17:15 02/28/19 18:13 Normal Saline - IV 100 mls/hr ASDIR JOSEPH Administration Ampicillin Sodium/Sulbactam 100 mls @ 200 mls/hr 02/28/19 21:00 03/01/19 03: 22 Sodium 3 gm/ Sodium Chloride IVPB 200 mls/hr Q6H-IV JOSEPH Administration ASSESSMENT/PLAN: 43 year old male history of IVDA, history of left hand injury requiring reconstruction status post left fifth digit amputation and neurovascular reconstruction of third and fourth digits requiring hardware presents after a 3 day history of left third digit swelling, drainage, and pain. Cellulitis-Left 3rd Digit -Per ID Consult (Dr. Barron) -will continue unasyn -plastics to have a look at the patient -MRI Ordered -Wound Cultures pending -Dr. Burton (Plastics and Hand) was consulted, ED physician spoke with him and he confirmed he will be seeing patient. Called his office today, and he was in surgery. Message left. Methadone Dependence -Verification complete, Last dose 02/27 -Start Methadone 165 mg PO Daily Tobacco Cessation -pack a day smoker -Nicotine Patch 14mg TD Daily F/E/N -F- PO intake adequate -E- Replete as indicated -N-Regular Diet DVT Prophylaxis Early ambulation Subq Heparin 5000unit subQ BID Dispo Maintain as inpatient Full Code Visit type - Emergency Visit Emergency Visit: Yes ED Registration Date: 02/28/19 Care time: The patient presented to the Emergency Department on the above date and was hospitalized for further evaluation of their emergent condition. - New Patient This patient is new to me today: Yes Date on this admission: 03/01/19 - Critical Care Critical Care patient: No
[2019-03-01 09:08] LABS: EOS % 3.8 % (0-4.5); HEMATOCRIT 33.5 % (35.4-49); HEMOGLOBIN 11.3 GM/dL (11.7-16.9); LYMPH % 29.7 % (8-40); MCH 29.5 pg (25.7-33.7); MCHC 33.7 g/dl (32.0-35.9); MEAN CELL VOLUME 87.4 fl (80-96); MEAN PLT VOLUME 6.7 fl (7.5-11.1); MONO % 7.1 % (3.8-10.2); NEUT % 58.4 % (42.8-82.8); PLATELET COUNT 258 K/MM3 (134-434); RBC 3.83 M/mm3 (4.00-5.60); RDW 14.4 % (11.9-15.9); WHITE BLOOD COUNT 6.2 K/mm3 (4.0-10.0)
[2019-03-01] MEDS ORDERED: METHADONE HCL 10 MG TABLET PO SCH (09:15)
[2019-03-01 09:37] LABS: CALCIUM 8.5 mg/dL (8.5-10.1); CREATININE 0.9 mg/dL (0.55-1.3); POTASSIUM 4.3 mmol/L (3.5-5.1)
[2019-03-01] MEDS ORDERED: METHADONE HCL 5 MG TABLET ONE (09:54)
[2019-03-01] MEDS ORDERED: METHADONE HCL 40 MG DISPERSABLE TABLET ONE (09:54)
[2019-03-01] MEDS: METHADONE 160 MG, METHADONE 5 MG PO SCH (10:09)
[2019-03-01] MEDS: SODIUM CHLORIDE 1,000 ML IV SCH ×2 (10:10→15:03)
[2019-03-01] MEDS: HEPARIN NA (PORCINE) 5,000 UNITS/ML 1ML VIAL SQ SCH ×2 (10:10→22:30)
--- NOTE | 2019-03-01 12:49 | CON.ID ---
Consult Consult Specialty:: infectious diseases Referred by:: Reason for Consultation:: hand wound infection - History of Present Illness Chief Complaint: ulcer and wound of the left ring finger tip History of Present Illness: 43 year old male history of IVDA, history of left hand injury requiring reconstruction status post left fifth digit amputation and neurovascular reconstruction of third and fourth digits requiring hardware presents after a 3 day history of left third digit swelling, drainage, and pain. He was unable to flex finger so he came to ED for further evaluation. Patient is unhappy with his surgery at [facility] so he decided to come here. He denies fever /chills, nausea vomiting. He stats for the past few weeks left hand has been numb but he wasn't sure if that was old or new. patient mentions that he thinks he burnt his finger as he had no sensation now the wound has dressng over the wound and unable to see how bad the wound is patient has been started on abx - History Source History Provided By: Patient Limitations to Obtaining History: No Limitations - Past Medical History Infectious Disease: Yes: Other Psych: Yes: Addictions (Hx IVDA) - Past Surgical History Past Surgical History: Yes: Amputation (lfet fifth finger and tip of left middle finger), Appendectomy - Alcohol/Substance Use Hx Alcohol Use: No History of Substance Use: reports: Heroin Date of Last Use: 08/16/12 - Smoking History Smoking history: Current every day smoker Have you smoked in the past 12 months: Yes Aproximately how many cigarettes per day: 10 If you are a former smoker, when did you quit?: 1 PPD daily - Social History ADL: Independent Occupation: [employer] History of Recent Travel: No Home Medications - Allergies Allergies/Adverse Reactions: Allergies Allergy/AdvReac Type Severity Reaction Status Date / Time No Known Allergies Allergy Verified 02/28/19 12:58 - Home Medications Home Medications: Ambulatory Orders Bupropion HCl [Wellbutrin Xl -] 150 mg PO DAILY #30 tab.sr.24h 03/09/18 Methadone HCl 150 mg PO DAILY 03/09/18 Review of Systems - Review of Systems Constitutional: reports: No Symptoms Eyes: reports: No Symptoms HENT: reports: No Symptoms Neck: reports: No Symptoms Cardiovascular: reports: No Symptoms Respiratory: reports: No Symptoms Gastrointestinal: reports: No Symptoms Genitourinary: reports: No Symptoms Musculoskeletal: reports: Other Integumentary: reports: Wound (on the tip of left 3rd finger) Neurological: reports: No Symptoms Endocrine: reports: No Symptoms Hematology/Lymphatic: reports: No Symptoms Psychiatric: reports: No Symptoms Physical Exam Vital Signs: Vital Signs Temperature 97.8 F 03/01/19 04:56 Pulse Rate 61 03/01/19 04:56 Respiratory Rate 20 03/01/19 04:56 Blood Pressure 114/67 03/01/19 04:56 O2 Sat by Pulse Oximetry (%) 100 02/28/19 22:19 Constitutional: Yes: Well Nourished, No Distress, Calm Cardiovascular: Yes: Regular Rate and Rhythm Respiratory: Yes: Regular, CTA Bilaterally Gastrointestinal: Yes: Normal Bowel Sounds, Soft Musculoskeletal: Yes: WNL Extremities: Yes: Other Wound/Incision: Yes: Dressing Dry and Intact Neurological: Yes: Alert, Oriented Psychiatric: Yes: Alert, Oriented Labs: CBC, BMP 03/01/19 08:25 03/01/19 08:25 Assessment/Plan Problem List - Problems (1) Cellulitis, finger Code(s): L03.019 - CELLULITIS OF UNSPECIFIED FINGER Qualifiers: Laterality: right Qualified Code(s): L03.011 - Cellulitis of right finger (2) Methadone maintenance therapy patient Code(s): F11.20 - OPIOID DEPENDENCE, UNCOMPLICATED Assessment/Plan 43 year old male with a PMHx of reconstructive hand surgery requiring hardware, presents with left third digit cellulitis 1) Left third digit cellulitis plan will continue unasyn plastics to have a look at the patient will see how the wound loks rest as per the team
[2019-03-01] MEDS: NICOTINE 14 MG/24 HOURS TOPICAL PATCH TD SCH (15:03)
[2019-03-02] MEDS ORDERED: PT OWN MED DRAWER 7, Y5N ONE ×3 (02:11→19:56)
[2019-03-02] MEDS: AMPICILLIN NA/SULBACTAM NA 3 GM in SODIUM CHLORIDE 100 ML IVPB SCH ×4 (02:22→21:02)
[2019-03-02] MEDS ORDERED: METHADONE HCL 40 MG DISPERSABLE TABLET ONE (05:57)
[2019-03-02] MEDS ORDERED: METHADONE HCL 5 MG TABLET ONE (05:57)
[2019-03-02] MEDS: METHADONE 160 MG, METHADONE 5 MG PO SCH (06:06)
[2019-03-02] MEDS: HEPARIN NA (PORCINE) 5,000 UNITS/ML 1ML VIAL SQ SCH ×2 (10:49→21:02)
[2019-03-02] MEDS: NICOTINE 14 MG/24 HOURS TOPICAL PATCH TD SCH (10:49)
--- NOTE | 2019-03-02 13:06 | PN ---
Progress Note, Physician History of Present Illness: hand swelling has decreased a lot patient says he feels better - Current Medication List Current Medications: Active Medications Acetaminophen (Tylenol -) 650 mg PO Q4H PRN PRN Reason: MILD PAIN Bupropion HCl (Wellbutrin Xl -) 150 mg PO DAILY [facility] Last Admin: 03/02/19 10:49 Dose: 150 mg Heparin Sodium (Porcine) (Heparin -) 5,000 unit SQ BID [facility] Last Admin: 03/02/19 10:49 Dose: 5,000 unit Ampicillin Sodium/Sulbactam (Sodium 3 gm/ Sodium Chloride) 100 mls @ 200 mls/ hr IVPB Q6H-IV [facility] Last Admin: 03/02/19 10:49 Dose: 200 mls/hr Sodium Chloride (Normal Saline -) 1,000 mls @ 10 mls/hr IV ASDIR [facility] Last Admin: 03/01/19 15:03 Dose: Not Given Methadone HCl 160 mg/ (Methadone HCl 5 mg) 165 mg PO DAILY@0600 [facility] Last Admin: 03/02/19 06:06 Dose: 165 mg Nicotine (Nicoderm Patch -) 14 mg TD DAILY [facility] Last Admin: 03/02/19 10:49 Dose: 14 mg - Objective Vital Signs: Vital Signs Temperature 97.8 F 03/02/19 06:00 Pulse Rate 59 L 03/02/19 06:00 Respiratory Rate 20 03/02/19 06:00 Blood Pressure 117/72 03/02/19 06:00 O2 Sat by Pulse Oximetry (%) 100 02/28/19 22:19 Constitutional: Yes: No Distress, Calm Cardiovascular: Yes: S1, S2 Respiratory: Yes: Regular, CTA Bilaterally Gastrointestinal: Yes: Normal Bowel Sounds, Soft Musculoskeletal: Yes: WNL Extremities: Yes: Other Wound/Incision: Yes: Dressing Dry and Intact Neurological: Yes: Alert, Oriented Psychiatric: Yes: Alert, Oriented Labs: CBC, BMP 03/01/19 08:25 03/01/19 08:25 Assessment/Plan Problem List - Problems (1) Cellulitis, finger Code(s): L03.019 - CELLULITIS OF UNSPECIFIED FINGER Qualifiers: Laterality: right Qualified Code(s): L03.011 - Cellulitis of right finger (2) Methadone maintenance therapy patient Code(s): F11.20 - OPIOID DEPENDENCE, UNCOMPLICATED Assessment/Plan 43 year old male with a PMHx of reconstructive hand surgery requiring hardware, presents with left third digit cellulitis 1) Left third digit cellulitis plan continue abx will see how the hand looks tomorrow if it looks better will switch to oral
--- NOTE | 2019-03-02 14:47 | PN ---
Progress Note, Physician Chief Complaint: left middle finger swelling History of Present Illness: no acute events overnight feeling well, no complaints. pain and swelling decreased - Current Medication List Current Medications: Active Medications Acetaminophen (Tylenol -) 650 mg PO Q4H PRN PRN Reason: MILD PAIN Bupropion HCl (Wellbutrin Xl -) 150 mg PO DAILY [facility] Last Admin: 03/02/19 10:49 Dose: 150 mg Heparin Sodium (Porcine) (Heparin -) 5,000 unit SQ BID [facility] Last Admin: 03/02/19 10:49 Dose: 5,000 unit Ampicillin Sodium/Sulbactam (Sodium 3 gm/ Sodium Chloride) 100 mls @ 200 mls/ hr IVPB Q6H-IV [facility] Last Admin: 03/02/19 10:49 Dose: 200 mls/hr Sodium Chloride (Normal Saline -) 1,000 mls @ 10 mls/hr IV ASDIR [facility] Last Admin: 03/01/19 15:03 Dose: Not Given Methadone HCl 160 mg/ (Methadone HCl 5 mg) 165 mg PO DAILY@0600 [facility] Last Admin: 03/02/19 06:06 Dose: 165 mg Nicotine (Nicoderm Patch -) 14 mg TD DAILY [facility] Last Admin: 03/02/19 10:49 Dose: 14 mg - Objective Vital Signs: Vital Signs Temperature 98.2 F 03/02/19 14:29 Pulse Rate 76 03/02/19 14:29 Respiratory Rate 20 03/02/19 14:29 Blood Pressure 128/83 03/02/19 14:29 O2 Sat by Pulse Oximetry (%) 100 02/28/19 22:19 Constitutional: Yes: Well Nourished, No Distress, Calm Cardiovascular: Yes: WNL, Regular Rate and Rhythm Respiratory: Yes: WNL, Regular, CTA Bilaterally Gastrointestinal: Yes: WNL, Normal Bowel Sounds, Soft Musculoskeletal: Yes: Other (left middle finger wrapped, swelling and erythema much improved, able to flex finger) Extremities: Yes: WNL Edema: No Labs: CBC, BMP 03/01/19 08:25 03/01/19 08:25 Problem List - Problems (1) Cellulitis, finger Code(s): L03.019 - CELLULITIS OF UNSPECIFIED FINGER Qualifiers: Laterality: right Qualified Code(s): L03.011 - Cellulitis of right finger (2) Methadone maintenance therapy patient Code(s): F11.20 - OPIOID DEPENDENCE, UNCOMPLICATED Assessment/Plan 43 year old male with a PMHx of reconstructive hand surgery requiring hardware, presents with left third digit cellulitis 1) Left third digit cellulitis -xray either post op changes or osteomyelitis -MRI pending -cw IV abx -wound cultures pending -pain control -Dr. Burton (plastic and hand surgery) was consulted, ED physician spoke with him and he confirmed he will be seeing patient, called 3 times and messages left -ID eval appreciated 2) Methadone dependence -cw methadone -tobacco cessation counseling DVT ppx -hep subq
[2019-03-02] MEDS: SODIUM CHLORIDE 1,000 ML IV SCH (16:19)
[2019-03-03] MEDS: AMPICILLIN NA/SULBACTAM NA 3 GM in SODIUM CHLORIDE 100 ML IVPB SCH ×4 (03:00→22:40)
[2019-03-03] MEDS ORDERED: METHADONE HCL 5 MG TABLET ONE (05:20)
[2019-03-03] MEDS ORDERED: METHADONE HCL 40 MG DISPERSABLE TABLET ONE (05:20)
[2019-03-03] MEDS: METHADONE 160 MG, METHADONE 5 MG PO SCH (05:32)
[2019-03-03 07:36] LABS: BASO % 1.1 % (0-2.0); EOS % 5.6 % (0-4.5); HEMATOCRIT 35.3 % (35.4-49); LYMPH % 26.9 % (8-40); MCH 29.4 pg (25.7-33.7); MCHC 33.9 g/dl (32.0-35.9); MEAN CELL VOLUME 86.6 fl (80-96); MEAN PLT VOLUME 6.7 fl (7.5-11.1); MONO % 7.4 % (3.8-10.2); RBC 4.08 M/mm3 (4.00-5.60); RDW 14.3 % (11.9-15.9); WHITE BLOOD COUNT 6.2 K/mm3 (4.0-10.0)
[2019-03-03 08:22] LABS: PLATELET COUNT 260 K/MM3 (134-434)
[2019-03-03] MEDS ORDERED: PT OWN MED DRAWER 7, Y5N ONE ×3 (08:59→21:21)
[2019-03-03] MEDS: NICOTINE 14 MG/24 HOURS TOPICAL PATCH TD SCH (09:36)
[2019-03-03] MEDS: HEPARIN NA (PORCINE) 5,000 UNITS/ML 1ML VIAL SQ SCH ×2 (09:37→22:45)
[2019-03-03 10:04] LABS: ANISOCYTOSIS 0; MACROCYTOSIS 0; PLATELET ESTIMATE NORMAL
[2019-03-03] MEDS ORDERED: LORazepam 1 MG TABLET PO ONE ×2 (13:56→19:00)
--- NOTE | 2019-03-03 13:57 | PN ---
Progress Note, Physician Chief Complaint: left hand 3rd digit cellulitis History of Present Illness: Patient is a 43 year old male history of IVDA, history of left hand injury requiring reconstruction status post left fifth digit amputation and vascular reconstruction of third and fourth digits requiring hardware presents after a 3 day history of left third digit swelling, drainage and pain. He was unable to flex finger so he came to ED for further evaluation. He denies fever/chills, nausea vomiting. He stats for the past few weeks left hand has been numb but he wasn't sure if that was old or new. He is for an MRI of left hand today to rule out osteomyelitis. - Current Medication List Current Medications: Active Medications Acetaminophen (Tylenol -) 650 mg PO Q4H PRN PRN Reason: MILD PAIN Bupropion HCl (Wellbutrin Xl -) 150 mg PO DAILY [facility] Last Admin: 03/03/19 09:37 Dose: 150 mg Heparin Sodium (Porcine) (Heparin -) 5,000 unit SQ BID [facility] Last Admin: 03/03/19 09:37 Dose: 5,000 unit Ampicillin Sodium/Sulbactam (Sodium 3 gm/ Sodium Chloride) 100 mls @ 200 mls/ hr IVPB Q6H-IV [facility] Last Admin: 03/03/19 09:36 Dose: 200 mls/hr Sodium Chloride (Normal Saline -) 1,000 mls @ 10 mls/hr IV ASDIR [facility] Last Admin: 03/02/19 16:19 Dose: Not Given Methadone HCl 160 mg/ (Methadone HCl 5 mg) 165 mg PO DAILY@0600 [facility] Last Admin: 03/03/19 05:32 Dose: 165 mg Nicotine (Nicoderm Patch -) 14 mg TD DAILY [facility] Last Admin: 03/03/19 09:36 Dose: 14 mg - Objective Vital Signs: Vital Signs Temperature 98.2 F 03/03/19 05:00 Pulse Rate 61 03/03/19 05:00 Respiratory Rate 20 03/03/19 05:00 Blood Pressure 114/70 03/03/19 05:00 O2 Sat by Pulse Oximetry (%) 100 02/28/19 22:19 Constitutional: Yes: Well Nourished, No Distress, Calm Eyes: Yes: WNL HENT: Yes: WNL Neck: Yes: WNL Cardiovascular: Yes: WNL, Regular Rate and Rhythm Respiratory: Yes: WNL Gastrointestinal: Yes: Normal Bowel Sounds ...Rectal Exam: Yes: WNL Genitourinary: Yes: WNL Breast(s): Yes: WNL Musculoskeletal: Yes: WNL Extremities: Yes: WNL Integumentary: Yes: WNL Wound/Incision: Yes: Clean/Dry Neurological: Yes: WNL ...Motor Strength: LUE (unable to feel his digits, since his injury last year) Psychiatric: Yes: Alert, Oriented Labs: CBC, BMP 03/03/19 06:40 03/01/19 08:25 Problem List - Problems (1) Cellulitis, finger Assessment/Plan: Left third digit cellulitis -xray either post op changes or osteomyelitis -MRI pending to rule out osteo. will need ativan 2mg prior to mri for claustrophobia. -continue IV abx per ID -wound cultures pending -pain control with toradol -Dr. Burton (plastic and hand surgery) was consulted Code(s): L03.019 - CELLULITIS OF UNSPECIFIED FINGER Qualifiers: Laterality: right Qualified Code(s): L03.011 - Cellulitis of right finger (2) Methadone maintenance therapy patient Assessment/Plan: on methadone Code(s): F11.20 - OPIOID DEPENDENCE, UNCOMPLICATED (3) Opiate dependence Assessment/Plan: hx of iv drug use Code(s): F11.20 - OPIOID DEPENDENCE, UNCOMPLICATED (4) Prophylactic measure Assessment/Plan: fen tolerating po monitor electrolytes low salt diet pain control prophy on heparin will consult OT therapy. Code(s): Z29.9 - ENCOUNTER FOR PROPHYLACTIC MEASURES, UNSPECIFIED Visit type - Emergency Visit Emergency Visit: Yes ED Registration Date: 02/28/19 Care time: The patient presented to the Emergency Department on the above date and was hospitalized for further evaluation of their emergent condition. - New Patient This patient is new to me today: Yes Date on this admission: 03/03/19 - Critical Care Critical Care patient: No
[2019-03-03] MEDS: SODIUM CHLORIDE 1,000 ML IV SCH (14:39)
[2019-03-03] MEDS ORDERED: KETOROLAC TROMETHAMINE 10 MG TABLET PO PRN (15:54)
--- NOTE | 2019-03-03 16:24 | PN ---
Progress Note, Physician History of Present Illness: Pt seen and examined, events noted. States he feels well. Has no specific complaints. - Current Medication List Current Medications: Active Medications Acetaminophen (Tylenol -) 650 mg PO Q4H PRN PRN Reason: MILD PAIN Bupropion HCl (Wellbutrin Xl -) 150 mg PO DAILY [facility] Last Admin: 03/03/19 09:37 Dose: 150 mg Heparin Sodium (Porcine) (Heparin -) 5,000 unit SQ BID [facility] Last Admin: 03/03/19 09:37 Dose: 5,000 unit Ampicillin Sodium/Sulbactam (Sodium 3 gm/ Sodium Chloride) 100 mls @ 200 mls/ hr IVPB Q6H-IV [facility] Last Admin: 03/03/19 14:42 Dose: 200 mls/hr Sodium Chloride (Normal Saline -) 1,000 mls @ 10 mls/hr IV ASDIR [facility] Last Admin: 03/03/19 14:39 Dose: 10 mls/hr Ketorolac Tromethamine (Toradol) 10 mg PO Q6HPO PRN PRN Reason: PAIN LEVEL 7 - 10 Stop: 03/08/19 17:59 Methadone HCl 160 mg/ (Methadone HCl 5 mg) 165 mg PO DAILY@0600 [facility] Last Admin: 03/03/19 05:32 Dose: 165 mg Nicotine (Nicoderm Patch -) 14 mg TD DAILY [facility] Last Admin: 03/03/19 09:36 Dose: 14 mg - Objective Vital Signs: Vital Signs Temperature 97.9 F 03/03/19 15:37 Pulse Rate 75 03/03/19 15:37 Respiratory Rate 20 03/03/19 15:37 Blood Pressure 128/85 03/03/19 15:37 O2 Sat by Pulse Oximetry (%) 100 02/28/19 22:19 Constitutional: Yes: No Distress, Calm Cardiovascular: Yes: Regular Rate and Rhythm Respiratory: Yes: Regular Gastrointestinal: Yes: Normal Bowel Sounds, Soft Wound/Incision: Yes: Dressing Dry and Intact, Other (Lt 3rd finger less erythema /edema) Neurological: Yes: Alert, Oriented Labs: CBC, BMP 03/03/19 06:40 03/01/19 08:25 - ....Imaging X-ray: Report Reviewed MRI: Pending Problem List - Problems (1) Cellulitis, finger Code(s): L03.019 - CELLULITIS OF UNSPECIFIED FINGER Qualifiers: Laterality: right Qualified Code(s): L03.011 - Cellulitis of right finger (2) Methadone maintenance therapy patient Code(s): F11.20 - OPIOID DEPENDENCE, UNCOMPLICATED (3) Opiate dependence Code(s): F11.20 - OPIOID DEPENDENCE, UNCOMPLICATED Assessment/Plan Lt 3rd digit cellulitis r/o OM -- wound culture results noted -- awaiting MRI/hand surgery evaluation -- continue IV antibiotics for now
[2019-03-04] MEDS ORDERED: PT OWN MED DRAWER 7, Y5N ONE ×2 (01:38→09:39)
[2019-03-04] MEDS: AMPICILLIN NA/SULBACTAM NA 3 GM in SODIUM CHLORIDE 100 ML IVPB SCH ×2 (02:11→09:53)
[2019-03-04] MEDS ORDERED: METHADONE HCL 40 MG DISPERSABLE TABLET ONE (06:07)
[2019-03-04] MEDS ORDERED: METHADONE HCL 5 MG TABLET ONE (06:07)
[2019-03-04] MEDS: METHADONE 160 MG, METHADONE 5 MG PO SCH (06:23)
--- NOTE | 2019-03-04 08:33 | PN ---
Physical Exam: SUBJECTIVE: Patient seen and examined. Pt seen and examined. Lt had edema/ erythema resolving. Pt remains afebrile, without new complaints. Pt denies CP, Fever, chill, N/V/D. Spent time with patient discussing options regarding the diagnosis of Osteomyelitis, per MRI. PT wanted to leave AMA. Pt decides to stay and weight for possibility of getting a PICC line Wednesday. ID will speak with patient about treatment needs. OBJECTIVE: Vital Signs Period Temp Pulse Resp BP Sys/Cho Pulse Ox Last 24 Hr 97.5 F-98.1 F 52-75 20-20 105-131/49-85 Constitutional: Yes: No Distress, Calm Cardiovascular: Yes: Regular Rate and Rhythm Respiratory: Yes: Regular Gastrointestinal: Yes: Normal Bowel Sounds, Soft Genitourinary: Yes: WNL Wound/Incision: Yes: Dressing Dry and Intact, Other (Lt hand/finger resolving edema/erythema Lt 3rd digit dressing intact) Neurological: Yes: Alert, Oriented Labs: Laboratory Results - last 24 hr 03/03/19 06:40 Neutrophils % (Manual) 57.3 Band Neutrophils % 0.0 Lymphocytes % (Manual) 26.2 Monocytes % (Manual) 4 Eosinophils % (Manual) 7.8 H Basophils % (Manual) 0.0 Myelocytes % (Man) 1 Promyelocytes % (Man) 0 Blast Cells % (Manual) 0 Nucleated RBC % 0 Metamyelocytes 2 Hypochromia 0 Platelet Estimate Normal Polychromasia 0 Poikilocytosis 0 Anisocytosis 0 Microcytosis 0 Macrocytosis 0 Active Medications Generic Name Dose Route Start Last Admin Trade Name Freq PRN Reason Stop Dose Admin Acetaminophen 650 mg 02/28/19 17:13 Tylenol - PO Q4H PRN MILD PAIN Bupropion HCl 150 mg 03/01/19 10:00 03/03/19 09:37 Wellbutrin Xl - PO 150 mg DAILY [facility] Administration Heparin Sodium (Porcine) 5,000 unit 02/28/19 22:00 03/03/19 22:45 Heparin - SQ 5,000 unit BID [facility] Administration Ampicillin Sodium/Sulbactam 100 mls @ 200 mls/hr 02/28/19 21:00 03/04/19 02: 11 Sodium 3 gm/ Sodium Chloride IVPB 200 mls/hr Q6H-IV [facility] Administration Sodium Chloride 1,000 mls @ 10 mls/hr 03/01/19 13:30 03/03/19 14:39 Normal Saline - IV 10 mls/hr ASDIR [facility] Administration Ketorolac Tromethamine 10 mg 03/03/19 15:54 Toradol PO 03/08/19 17:59 Q6HPO PRN PAIN LEVEL 7 - 10 Methadone HCl 160 mg/ 165 mg 03/01/19 09:30 03/04/19 06:23 Methadone HCl 5 mg PO 165 mg DAILY@0600 [facility] Administration Nicotine 14 mg 03/01/19 13:15 03/03/19 09:36 Nicoderm Patch - TD 14 mg DAILY [facility] Administration ASSESSMENT/PLAN: (1) Cellulitis, finger Assessment/Plan: Left third digit cellulitis -MRI results positive for Osteomyelitis -continue IV abx per ID -wound cultures pending -pain control with toradol -Dr. Burton (plastic and hand surgery) was consulted Code(s): L03.019 - CELLULITIS OF UNSPECIFIED FINGER Qualifiers: Laterality: right Qualified Code(s): L03.011 - Cellulitis of right finger (2) Methadone maintenance therapy patient Assessment/Plan: on methadone Code(s): F11.20 - OPIOID DEPENDENCE, UNCOMPLICATED (3) Opiate dependence Assessment/Plan: hx of iv drug use Code(s): F11.20 - OPIOID DEPENDENCE, UNCOMPLICATED (4) Prophylactic measure Assessment/Plan: fen tolerating po monitor electrolytes low salt diet pain control prophy on heparin will consult OT therapy. Code(s): Z29.9 - ENCOUNTER FOR PROPHYLACTIC MEASURES, UNSPECIFIED Visit type - Emergency Visit Emergency Visit: Yes ED Registration Date: 02/28/19 Care time: The patient presented to the Emergency Department on the above date and was hospitalized for further evaluation of their emergent condition. - New Patient This patient is new to me today: No - Critical Care Critical Care patient: No
[2019-03-04 08:40] LABS: ALBUMIN 3.4 g/dl (3.4-5.0); BILIRUBIN,TOTAL 0.3 mg/dL (0.2-1); BLOOD UREA NITROGEN 15.7 mg/dL (7-18); CALCIUM 8.8 mg/dL (8.5-10.1); MAGNESIUM 2.5 mg/dL (1.8-2.4); POTASSIUM 4.5 mmol/L (3.5-5.1); TOT PROT 6.9 g/dl (6.4-8.2)
[2019-03-04] MEDS: HEPARIN NA (PORCINE) 5,000 UNITS/ML 1ML VIAL SQ SCH ×2 (09:53→21:51)
[2019-03-04] MEDS: NICOTINE 14 MG/24 HOURS TOPICAL PATCH TD SCH (09:53)
[2019-03-04 10:28] LABS: BASO % 1.2 % (0-2.0); EOS % 4.5 % (0-4.5); HEMATOCRIT 36.9 % (35.4-49); HEMOGLOBIN 12.5 GM/dL (11.7-16.9); LYMPH % 26.6 % (8-40); MCH 29.5 pg (25.7-33.7); MCHC 33.9 g/dl (32.0-35.9); MEAN CELL VOLUME 87.2 fl (80-96); MEAN PLT VOLUME 6.9 fl (7.5-11.1); NEUT % 60.7 % (42.8-82.8); PLATELET COUNT 257 K/MM3 (134-434); RBC 4.24 M/mm3 (4.00-5.60); RDW 14.5 % (11.9-15.9); WHITE BLOOD COUNT 6.2 K/mm3 (4.0-10.0)
[2019-03-04 12:19] LABS: ANISOCYTOSIS 0; MACROCYTOSIS 0; PLATELET ESTIMATE NORMAL
[2019-03-04] MEDS: SODIUM CHLORIDE 1,000 ML IV SCH (13:47)
--- NOTE | 2019-03-04 15:25 | PN ---
Progress Note, Physician History of Present Illness: Pt seen and examined. Lt had edema/erythema resolving. Pt remains afebrile, without new complaints. - Current Medication List Current Medications: Active Medications Acetaminophen (Tylenol -) 650 mg PO Q4H PRN PRN Reason: MILD PAIN Bupropion HCl (Wellbutrin Xl -) 150 mg PO DAILY [facility] Last Admin: 03/04/19 09:53 Dose: 150 mg Heparin Sodium (Porcine) (Heparin -) 5,000 unit SQ BID [facility] Last Admin: 03/04/19 09:53 Dose: 5,000 unit Ampicillin Sodium/Sulbactam (Sodium 3 gm/ Sodium Chloride) 100 mls @ 200 mls/ hr IVPB Q6H-IV [facility] Last Admin: 03/04/19 09:53 Dose: 200 mls/hr Sodium Chloride (Normal Saline -) 1,000 mls @ 10 mls/hr IV ASDIR [facility] Last Admin: 03/04/19 13:47 Dose: 10 mls/hr Ketorolac Tromethamine (Toradol) 10 mg PO Q6HPO PRN PRN Reason: PAIN LEVEL 7 - 10 Stop: 03/08/19 17:59 Methadone HCl 160 mg/ (Methadone HCl 5 mg) 165 mg PO DAILY@0600 [facility] Last Admin: 03/04/19 06:23 Dose: 165 mg Nicotine (Nicoderm Patch -) 14 mg TD DAILY [facility] Last Admin: 03/04/19 09:53 Dose: 14 mg - Objective Vital Signs: Vital Signs Temperature 97.5 F L 03/04/19 14:00 Pulse Rate 60 03/04/19 14:00 Respiratory Rate 20 03/04/19 14:00 Blood Pressure 138/95 03/04/19 14:00 O2 Sat by Pulse Oximetry (%) 100 02/28/19 22:19 Constitutional: Yes: No Distress, Calm Cardiovascular: Yes: Regular Rate and Rhythm Respiratory: Yes: Regular Gastrointestinal: Yes: Normal Bowel Sounds, Soft Genitourinary: Yes: WNL Wound/Incision: Yes: Dressing Dry and Intact, Other (Lt hand/finger resolving edema/erythema Lt 3rd digit dressing intact) Neurological: Yes: Alert, Oriented Labs: CBC, BMP 03/04/19 07:25 03/04/19 07:27 Microbiology 03/01/19 01:05 Finger - Left Middle Finger Gram Stain - Final 03/01/19 01:05 Finger - Left Middle Finger Wound Culture - Final Staphylococcus Aureus Staphylococcus Coagulase Neg - ....Imaging MRI: Pending Problem List - Problems (1) Cellulitis, finger Code(s): L03.019 - CELLULITIS OF UNSPECIFIED FINGER Qualifiers: Laterality: right Qualified Code(s): L03.011 - Cellulitis of right finger (2) Methadone maintenance therapy patient Code(s): F11.20 - OPIOID DEPENDENCE, UNCOMPLICATED (3) Opiate dependence Code(s): F11.20 - OPIOID DEPENDENCE, UNCOMPLICATED Assessment/Plan Lt 3rd digit/hand cellulitis r/o OM Hx of reconstructive surgey -- MRI official results pending, discussed with radiology by [employer] COUNSELOR - preliminary result shows likely OM -- Wound cultures +Staph aureus -- will switch to Ceftriaxone 2 grams IV daily x will likely need 5wks based on official MRI result -- weekly cbc/cmp/esr/crp -- surgical f/u -- continue wound care discussed with [facility] [place]
[2019-03-04] MEDS ORDERED: CEFTRIAXONE 2 GM in DEXTROSE 5%-WATER 100 ML IVPB SCH (15:30)
[2019-03-04] MEDS ORDERED: DEXTROSE 5%-WATER 100 ML IVPB ONE (15:49)
[2019-03-04] MEDS: CEFTRIAXONE 2 GM in DEXTROSE 5%-WATER 100 ML IVPB SCH (15:50)
[2019-03-05] MEDS ORDERED: METHADONE HCL 5 MG TABLET ONE (05:57)
[2019-03-05] MEDS ORDERED: METHADONE HCL 40 MG DISPERSABLE TABLET ONE (05:57)
[2019-03-05] MEDS: METHADONE 160 MG, METHADONE 5 MG PO SCH (06:06)
[2019-03-05] MEDS: AMPICILLIN NA/SULBACTAM NA 3 GM in SODIUM CHLORIDE 100 ML IVPB SCH (07:26)
[2019-03-05 07:32] LABS: EOS % 4.1 % (0-4.5); HEMATOCRIT 39.2 % (35.4-49); HEMOGLOBIN 13.2 GM/dL (11.7-16.9); LYMPH % 29.6 % (8-40); MCH 29.5 pg (25.7-33.7); MCHC 33.6 g/dl (32.0-35.9); MEAN CELL VOLUME 87.8 fl (80-96); MEAN PLT VOLUME 6.7 fl (7.5-11.1); MONO % 6.6 % (3.8-10.2); NEUT % 58.7 % (42.8-82.8); PLATELET COUNT 288 K/MM3 (134-434); RBC 4.46 M/mm3 (4.00-5.60); RDW 14.7 % (11.9-15.9); WHITE BLOOD COUNT 8.7 K/mm3 (4.0-10.0)
[2019-03-05 08:02] LABS: BILIRUBIN,TOTAL 0.3 mg/dL (0.2-1); BLOOD UREA NITROGEN 17.8 mg/dL (7-18); CALCIUM 9.4 mg/dL (8.5-10.1); CREATININE 1.2 mg/dL (0.55-1.3); MAGNESIUM 2.6 mg/dL (1.8-2.4); POTASSIUM 4.4 mmol/L (3.5-5.1); TOT PROT 7.8 g/dl (6.4-8.2)
--- NOTE | 2019-03-05 09:44 | PN ---
Physical Exam: SUBJECTIVE: Patient seen and examined. Patient seen and examined. Pt seen and examined. Lt had edema/erythema resolving. Pt remains afebrile, without new complaints. Pt denies CP, Fever, chill, N/V/D. Spent time with patient discussing options regarding the diagnosis of Osteomyelitis, per MRI. PT wanted to leave AMA. Pt decides to stay and weight for possibility of getting a PICC line Wednesday. ID will speak with patient about treatment needs. OBJECTIVE: Vital Signs Period Temp Pulse Resp BP Sys/Cho Pulse Ox Last 24 Hr 97.5 F-97.9 F 60-69 20-20 115-144/67-98 GENERAL: The patient is awake, alert, and fully oriented, in no acute distress. HEAD: Normal with no signs of trauma. EYES: PERRL, extraocular movements intact, sclera anicteric, conjunctiva clear. No ptosis. ENT: Ears normal, nares patent, oropharynx clear without exudates, moist mucous membranes. NECK: Trachea midline, full range of motion, supple. LUNGS: Breath sounds equal, clear to auscultation bilaterally, no wheezes, no crackles, no accessory muscle use. HEART: Regular rate and rhythm, S1, S2 without murmur, rub or gallop. ABDOMEN: Soft, nontender, nondistended, normoactive bowel sounds, no guarding, no rebound, no hepatosplenomegaly, no masses. EXTREMITIES: 2+ pulses, warm, well-perfused, no edema. NEUROLOGICAL: Cranial nerves II through XII grossly intact. Normal speech, gait not observed. PSYCH: Normal mood, normal affect. SKIN: Warm, dry, normal turgor, no rashes or lesions noted Laboratory Results - last 24 hr 03/04/19 03/05/19 03/05/19 07:25 06:30 06:30 WBC 6.2 8.7 RBC 4.24 4.46 Hgb 12.5 13.2 Hct 36.9 39.2 MCV 87.2 87.8 MCH 29.5 29.5 MCHC 33.9 33.6 RDW 14.5 14.7 Plt Count 257 288 MPV 6.9 L 6.7 L Absolute Neuts (auto) 3.8 5.1 Neutrophils % 60.7 58.7 Neutrophils % (Manual) 61.0 Band Neutrophils % 0.0 Lymphocytes % 26.6 29.6 Lymphocytes % (Manual) 26.0 Monocytes % 7.0 6.6 Monocytes % (Manual) 4 Eosinophils % 4.5 4.1 Eosinophils % (Manual) 7.0 H Basophils % 1.2 1.0 Basophils % (Manual) 0.0 Myelocytes % (Man) 1 Promyelocytes % (Man) 0 Blast Cells % (Manual) 0 Nucleated RBC % 0 0 Metamyelocytes 0 D Hypochromia 0 Platelet Estimate Normal Polychromasia 0 Poikilocytosis 0 Anisocytosis 0 Microcytosis 0 Macrocytosis 0 Sodium 137 Potassium 4.4 Chloride 102 Carbon Dioxide 28 Anion Gap 8 BUN 17.8 Creatinine 1.2 Est GFR (CKD-EPI)AfAm 85.92 Est GFR (CKD-EPI)NonAf 74.14 Random Glucose 112 H Calcium 9.4 Magnesium 2.6 H Total Bilirubin 0.3 AST 52 H ALT 80 H Alkaline Phosphatase 110 Total Protein 7.8 Albumin 4.0 Active Medications Generic Name Dose Route Start Last Admin Trade Name Freq PRN Reason Stop Dose Admin Acetaminophen 650 mg 02/28/19 17:13 Tylenol - PO Q4H PRN MILD PAIN Bupropion HCl 150 mg 03/01/19 10:00 03/04/19 09:53 Wellbutrin Xl - PO 150 mg DAILY [facility] Administration Heparin Sodium (Porcine) 5,000 unit 02/28/19 22:00 03/04/19 21:51 Heparin - SQ 5,000 unit BID [facility] Administration Sodium Chloride 1,000 mls @ 10 mls/hr 03/01/19 13:30 03/04/19 13:47 Normal Saline - IV 10 mls/hr ASDIR [facility] Administration Ceftriaxone Sodium 2 gm/ 100 mls @ 200 mls/hr 03/04/19 15:45 03/04/19 15:50 Dextrose IVPB 200 mls/hr DAILY [facility] Administration Protocol Ketorolac Tromethamine 10 mg 03/03/19 15:54 Toradol PO 03/08/19 17:59 Q6HPO PRN PAIN LEVEL 7 - 10 Methadone HCl 160 mg/ 165 mg 03/01/19 09:30 03/05/19 06:06 Methadone HCl 5 mg PO 165 mg DAILY@0600 [facility] Administration Nicotine 14 mg 03/01/19 13:15 03/04/19 09:53 Nicoderm Patch - TD 14 mg DAILY [facility] Administration ASSESSMENT/PLAN: Cellulitis, finger Left third digit cellulitis -MRI results positive for Osteomyelitis -continue IV abx per ID -wound cultures pending -pain control with toradol -Dr. Burton (plastic and hand surgery) was consulted Methadone maintenance therapy patient -methadone 165mg PO Daily Opiate dependence -hx of iv drug use Diabetes Type 2 Newly Diagnosed -HgA1c 6.7 -Will manage with sliding scale and diet while inpatient. -Discussed with patient the importance of following up with Primary Care Doctor to receive treatment after discharge FEN -tolerating po -monitor electrolytes -Diabetic Diet -pain control DVT Prophy on heparin Visit type - Emergency Visit Emergency Visit: Yes ED Registration Date: 02/28/19 Care time: The patient presented to the Emergency Department on the above date and was hospitalized for further evaluation of their emergent condition. - New Patient This patient is new to me today: No - Critical Care Critical Care patient: No
[2019-03-05] MEDS ORDERED: DEXTROSE 5%-WATER 100 ML IVPB ONE (10:06)
[2019-03-05] MEDS: HEPARIN NA (PORCINE) 5,000 UNITS/ML 1ML VIAL SQ SCH ×2 (10:08→21:30)
[2019-03-05] MEDS: NICOTINE 14 MG/24 HOURS TOPICAL PATCH TD SCH (10:09)
[2019-03-05] MEDS: CEFTRIAXONE 2 GM in DEXTROSE 5%-WATER 100 ML IVPB SCH (10:09)
[2019-03-05 10:58] LABS: EPI CELLS 0.5 /HPF (0-5/HPF); HYALINE CASTS 2 /lpf (0-8); PH,URINE 5.5 (5.0-8.0); URINE APPEARANCE CLEAR; URINE BACTERIA 1.4 /hpf (NEGATIVE); URINE BILIRUBIN NEGATIVE (NEGATIVE); URINE COLOR YELLOW; URINE GLUCOSE (UA) NEGATIVE (NEGATIVE); URINE KETONE NEGATIVE (NEGATIVE); URINE LEUK ESTERASE NEGATIVE (NEGATIVE); URINE NITRITE NEGATIVE (NEGATIVE); URINE PROTEIN NEGATIVE (NEGATIVE); URINE RBC 1 /hpf (0-4); URINE UROBILINOGEN 0.2 mg/dL (0.2-1.0); URINE WBC 1 /hpf (0-5)
[2019-03-05 11:17] LABS: COCAINE, UR NEGATIVE ng/ml (CUTOFF=300); OPIATES, URI NEGATIVE ng/ml (CUTOFF=300); PHENCYCLIDINE,URINE NEGATIVE ng/ml (CUTOFF=25); URINE AMPHETAMINES NEGATIVE ng/ml (CUTOFF=500); URINE BARBITURATES NEGATIVE ng/ml (CUTOFF=200)
[2019-03-05 11:21] LABS: URINE BENZODIAZEPINES POSITIVE ng/ml (CUTOFF=200)
[2019-03-05 11:22] LABS: METHADONE, UR POSITIVE ng/ml (CUTOFF=300)
[2019-03-05 12:47] LABS: ANISOCYTOSIS 1+; MACROCYTOSIS 0; PLATELET ESTIMATE NORMAL; TEAR DROP CELLS 1+
--- NOTE | 2019-03-05 15:49 | PN ---
Progress Note, Physician History of Present Illness: Pt alert, afebrile, without distress. No pain in Lt finger/hand. No edema/ erythema. - Current Medication List Current Medications: Active Medications Acetaminophen (Tylenol -) 650 mg PO Q4H PRN PRN Reason: MILD PAIN Bupropion HCl (Wellbutrin Xl -) 150 mg PO DAILY [facility] Last Admin: 03/05/19 10:09 Dose: 150 mg Heparin Sodium (Porcine) (Heparin -) 5,000 unit SQ BID [facility] Last Admin: 03/05/19 10:08 Dose: 5,000 unit Sodium Chloride (Normal Saline -) 1,000 mls @ 10 mls/hr IV ASDIR [facility] Last Admin: 03/04/19 13:47 Dose: 10 mls/hr Ceftriaxone Sodium 2 gm/ (Dextrose) 100 mls @ 200 mls/hr IVPB DAILY [facility]; Protocol Last Admin: 03/05/19 10:09 Dose: 200 mls/hr Insulin Aspart (Novolog Vial Sliding Scale -) 1 vial SQ ACHS [facility]; Protocol Ketorolac Tromethamine (Toradol) 10 mg PO Q6HPO PRN PRN Reason: PAIN LEVEL 7 - 10 Stop: 03/08/19 17:59 Methadone HCl 160 mg/ (Methadone HCl 5 mg) 165 mg PO DAILY@0600 [facility] Last Admin: 03/05/19 06:06 Dose: 165 mg Nicotine (Nicoderm Patch -) 14 mg TD DAILY [facility] Last Admin: 03/05/19 10:09 Dose: 14 mg - Objective Vital Signs: Vital Signs Temperature 98.4 F 03/05/19 14:00 Pulse Rate 64 03/05/19 14:00 Respiratory Rate 20 03/05/19 14:00 Blood Pressure 139/81 03/05/19 14:00 O2 Sat by Pulse Oximetry (%) 100 02/28/19 22:19 Constitutional: Yes: No Distress, Calm Cardiovascular: Yes: Regular Rate and Rhythm Respiratory: Yes: Regular Gastrointestinal: Yes: Normal Bowel Sounds, Soft Genitourinary: Yes: WNL Integumentary: Yes: WNL Wound/Incision: Yes: Clean/Dry Neurological: Yes: Alert Labs: CBC, BMP 03/05/19 06:30 03/05/19 06:30 Microbiology 03/01/19 01:05 Finger - Left Middle Finger Gram Stain - Final 03/01/19 01:05 Finger - Left Middle Finger Wound Culture - Final Staphylococcus Aureus Staphylococcus Coagulase Neg - ....Imaging MRI: Report Reviewed Problem List - Problems (1) Cellulitis, finger Code(s): L03.019 - CELLULITIS OF UNSPECIFIED FINGER Qualifiers: Laterality: right Qualified Code(s): L03.011 - Cellulitis of right finger (2) Methadone maintenance therapy patient Code(s): F11.20 - OPIOID DEPENDENCE, UNCOMPLICATED (3) Opiate dependence Code(s): F11.20 - OPIOID DEPENDENCE, UNCOMPLICATED Assessment/Plan Lt 3rd digit/hand cellulitis / OM Hx of reconstructive surgey -- MRI findings consistent with OM -- Wound cultures +Staph aureus -- switched to Cetriaxone IV , to complete total 6 wks antibiotic course -- weekly cbc/cmp/esr/crp, monitor LFTs -- pt has a history of substance abuse and IVDU currently on methadone -- discussed at length with patient that if discharged home with PICC there is potential for infection/overdose/ if used for illicit substance injection. Pt stated he understands and that he will only use it for antibiotics administration. Pt refuses to go to a SNF to complete the course of treatment. -- needs close outpatient f/u -- with PMD and ID -- hand surgery f/u as outpatient
[2019-03-05] MEDS: SODIUM CHLORIDE 1,000 ML IV SCH (16:13)
[2019-03-05] MEDS: INSULIN SLIDING SCALE (NOVOLOG) 1 VIAL SQ SCH ×2 (16:18→21:34)
[2019-03-05] MEDS ORDERED: INSULIN SLIDING SCALE (NOVOLOG) 1 VIAL SQ SCH (16:30)
[2019-03-06] MEDS ORDERED: METHADONE HCL 5 MG TABLET ONE (05:59)
[2019-03-06] MEDS ORDERED: METHADONE HCL 40 MG DISPERSABLE TABLET ONE (05:59)
[2019-03-06] MEDS: METHADONE 160 MG, METHADONE 5 MG PO SCH (06:12)
[2019-03-06 07:09] LABS: BASO % 0.7 % (0-2.0); EOS % 2.6 % (0-4.5); HEMATOCRIT 39.6 % (35.4-49); HEMOGLOBIN 13.5 GM/dL (11.7-16.9); MCH 29.7 pg (25.7-33.7); MCHC 34.1 g/dl (32.0-35.9); MEAN PLT VOLUME 6.7 fl (7.5-11.1); MONO % 7.8 % (3.8-10.2); NEUT % 62.9 % (42.8-82.8); PLATELET COUNT 281 K/MM3 (134-434); RBC 4.55 M/mm3 (4.00-5.60); RDW 14.7 % (11.9-15.9); WHITE BLOOD COUNT 9.7 K/mm3 (4.0-10.0)
[2019-03-06 07:28] LABS: ALBUMIN 4.2 g/dl (3.4-5.0); BILIRUBIN,TOTAL 0.4 mg/dL (0.2-1); BLOOD UREA NITROGEN 20.3 mg/dL (7-18); CALCIUM 9.5 mg/dL (8.5-10.1); CREATININE 1.1 mg/dL (0.55-1.3); MAGNESIUM 2.8 mg/dL (1.8-2.4); POTASSIUM 4.2 mmol/L (3.5-5.1); TOT PROT 8.2 g/dl (6.4-8.2)
--- NOTE | 2019-03-06 08:39 | PN ---
Progress Note, Physician History of Present Illness: Chief Complaint: left hand 3rd digit cellulitis History of Present Illness: Patient is a 43 year old male history of IVDA, history of left hand injury requiring reconstruction status post left fifth digit amputation and vascular reconstruction of third and fourth digits requiring hardware presents after a 3 day history of left third digit swelling, drainage and pain. He was unable to flex finger so he came to ED for further evaluation. He denies fever/chills, nausea vomiting. He stats for the past few weeks left hand has been numb but he wasn't sure if that was old or new. He is for an MRI of left hand today to rule out osteomyelitis. - Current Medication List Current Medications: Active Medications Acetaminophen (Tylenol -) 650 mg PO Q4H PRN PRN Reason: MILD PAIN Bupropion HCl (Wellbutrin Xl -) 150 mg PO DAILY [facility] Last Admin: 03/05/19 10:09 Dose: 150 mg Heparin Sodium (Porcine) (Heparin -) 5,000 unit SQ BID [facility] Last Admin: 03/05/19 21:30 Dose: 5,000 unit Sodium Chloride (Normal Saline -) 1,000 mls @ 10 mls/hr IV ASDIR [facility] Last Admin: 03/05/19 16:13 Dose: Not Given Ceftriaxone Sodium 2 gm/ (Dextrose) 100 mls @ 200 mls/hr IVPB DAILY [facility]; Protocol Last Admin: 03/05/19 10:09 Dose: 200 mls/hr Insulin Aspart (Novolog Vial Sliding Scale -) 1 vial SQ ACHS [facility]; Protocol Last Admin: 03/05/19 21:34 Dose: Not Given Ketorolac Tromethamine (Toradol) 10 mg PO Q6HPO PRN PRN Reason: PAIN LEVEL 7 - 10 Stop: 03/08/19 17:59 Methadone HCl 160 mg/ (Methadone HCl 5 mg) 165 mg PO DAILY@0600 [facility] Last Admin: 03/06/19 06:12 Dose: 165 mg Nicotine (Nicoderm Patch -) 14 mg TD DAILY [facility] Last Admin: 03/05/19 10:09 Dose: 14 mg - Objective Vital Signs: Vital Signs Temperature 97.5 F L 03/05/19 19:43 Pulse Rate 76 03/05/19 19:43 Respiratory Rate 20 03/05/19 19:43 Blood Pressure 142/100 03/05/19 19:43 O2 Sat by Pulse Oximetry (%) 97 03/05/19 09:00 Labs: CBC, BMP 03/06/19 06:30
[2019-03-06] MEDS ORDERED: DEXTROSE 5%-WATER 100 ML IVPB ONE (09:51)
[2019-03-06] MEDS: CEFTRIAXONE 2 GM in DEXTROSE 5%-WATER 100 ML IVPB SCH (09:57)
[2019-03-06] MEDS: NICOTINE 14 MG/24 HOURS TOPICAL PATCH TD SCH (09:57)
[2019-03-06] MEDS: HEPARIN NA (PORCINE) 5,000 UNITS/ML 1ML VIAL SQ SCH ×2 (09:57→21:08)
[2019-03-06] MEDS: INSULIN SLIDING SCALE (NOVOLOG) 1 VIAL SQ SCH ×3 (10:01→21:21)
--- NOTE | 2019-03-06 10:22 | PN ---
Progress Note, Physician History of Present Illness: hand swelling has decreased a lot patient says he feels better osteo result noted - Current Medication List Current Medications: Active Medications Acetaminophen (Tylenol -) 650 mg PO Q4H PRN PRN Reason: MILD PAIN Bupropion HCl (Wellbutrin Xl -) 150 mg PO DAILY [facility] Last Admin: 03/06/19 09:57 Dose: 150 mg Heparin Sodium (Porcine) (Heparin -) 5,000 unit SQ BID [facility] Last Admin: 03/06/19 09:57 Dose: 5,000 unit Sodium Chloride (Normal Saline -) 1,000 mls @ 10 mls/hr IV ASDIR [facility] Last Admin: 03/05/19 16:13 Dose: Not Given Ceftriaxone Sodium 2 gm/ (Dextrose) 100 mls @ 200 mls/hr IVPB DAILY [facility]; Protocol Last Admin: 03/06/19 09:57 Dose: 200 mls/hr Insulin Aspart (Novolog Vial Sliding Scale -) 1 vial SQ ACHS [facility]; Protocol Last Admin: 03/06/19 10:01 Dose: Not Given Ketorolac Tromethamine (Toradol) 10 mg PO Q6HPO PRN PRN Reason: PAIN LEVEL 7 - 10 Stop: 03/08/19 17:59 Methadone HCl 160 mg/ (Methadone HCl 5 mg) 165 mg PO DAILY@0600 [facility] Last Admin: 03/06/19 06:12 Dose: 165 mg Nicotine (Nicoderm Patch -) 14 mg TD DAILY [facility] Last Admin: 03/06/19 09:57 Dose: 14 mg - Objective Vital Signs: Vital Signs Temperature 97.5 F L 03/05/19 19:43 Pulse Rate 76 03/05/19 19:43 Respiratory Rate 20 03/05/19 19:43 Blood Pressure 142/100 03/05/19 19:43 O2 Sat by Pulse Oximetry (%) 97 03/05/19 09:00 Constitutional: Yes: No Distress, Calm Cardiovascular: Yes: S1, S2 Respiratory: Yes: Regular, CTA Bilaterally Gastrointestinal: Yes: Normal Bowel Sounds, Soft Musculoskeletal: Yes: WNL Extremities: Yes: Other Wound/Incision: Yes: Dressing Dry and Intact Neurological: Yes: Alert, Oriented Psychiatric: Yes: Alert, Oriented Labs: CBC, BMP 03/06/19 06:30 03/06/19 06:30 Assessment/Plan Problem List - Problems (1) Cellulitis, finger Code(s): L03.019 - CELLULITIS OF UNSPECIFIED FINGER Qualifiers: Laterality: right Qualified Code(s): L03.011 - Cellulitis of right finger (2) Methadone maintenance therapy patient Code(s): F11.20 - OPIOID DEPENDENCE, UNCOMPLICATED Assessment/Plan 43 year old male with a PMHx of reconstructive hand surgery requiring hardware, presents with left third digit cellulitis 1) Left third digit cellulitis plan complete the abx course wound care
--- NOTE | 2019-03-06 15:03 | DS ---
Physical Exam: SUBJECTIVE: Patient seen and examined OBJECTIVE: Vital Signs Period Temp Pulse Resp BP Sys/Cho Pulse Ox Last 24 Hr 97.5 F-98.2 F 71-76 18-20 133-144/82-100 PHYSICAL EXAM GENERAL: The patient is awake, alert, and fully oriented, in no acute distress. HEAD: Normal with no signs of trauma. EYES: PERRL, extraocular movements intact, sclera anicteric, conjunctiva clear. ENT: Ears normal, nares patent, oropharynx clear without exudates, moist mucous membranes. NECK: Trachea midline, full range of motion, supple. LUNGS: Breath sounds equal, clear to auscultation bilaterally, no wheezes, no crackles, no accessory muscle use. HEART: Regular rate and rhythm, S1, S2 without murmur, rub or gallop. ABDOMEN: Soft, nontender, nondistended, normoactive bowel sounds, no guarding, no rebound, no hepatosplenomegaly, no masses. EXTREMITIES: 2+ pulses, warm, well-perfused, no edema. Amputation of left 5th digit. Residual edema to left 3rd digit NEUROLOGICAL: Cranial nerves II through XII grossly intact. Normal speech, gait not observed. PSYCH: Normal mood, normal affect. SKIN: Warm, dry, normal turgor, no rashes or lesions noted. LABS Laboratory Results - last 24 hr 03/05/19 03/05/19 03/06/19 16:17 20:56 05:46 WBC RBC Hgb Hct MCV MCH MCHC RDW Plt Count MPV Absolute Neuts (auto) Neutrophils % Lymphocytes % Monocytes % Eosinophils % Basophils % Nucleated RBC % Sodium Potassium Chloride Carbon Dioxide Anion Gap BUN Creatinine Est GFR (CKD-EPI)AfAm Est GFR (CKD-EPI)NonAf POC Glucometer 124 99 83 Random Glucose Calcium Magnesium Total Bilirubin AST ALT Alkaline Phosphatase Total Protein Albumin 03/06/19 03/06/19 03/06/19 06:30 06:30 14:33 WBC 9.7 RBC 4.55 Hgb 13.5 Hct 39.6 MCV 87.0 MCH 29.7 MCHC 34.1 RDW 14.7 Plt Count 281 MPV 6.7 L Absolute Neuts (auto) 6.1 Neutrophils % 62.9 Lymphocytes % 26.0 Monocytes % 7.8 Eosinophils % 2.6 Basophils % 0.7 Nucleated RBC % 0 Sodium 137 Potassium 4.2 Chloride 102 Carbon Dioxide 27 Anion Gap 8 BUN 20.3 H Creatinine 1.1 Est GFR (CKD-EPI)AfAm 95.46 Est GFR (CKD-EPI)NonAf 82.36 POC Glucometer 160 Random Glucose 102 Calcium 9.5 Magnesium 2.8 H Total Bilirubin 0.4 AST 52 H ALT 79 H Alkaline Phosphatase 116 Total Protein 8.2 Albumin 4.2 HOSPITAL COURSE: Date of Admission:02/28/19 Date of Discharge: 03/06/19 Minutes to complete discharge: 60 Discharge Summary Reason For Visit: CELLULITIS OF THE FINGER Current Active Problems Cellulitis, finger (Acute) Prophylactic measure (Acute) Hospital Course: Patient admitted to med/surg unit on 02/28 for cellulitis of left 3rd digit, possible osteomyletis Hospital course: Problem List - Problems (1) Cellulitis, finger Assessment/Plan: Left third digit cellulitis 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 Follows with hand surgeon at [facility] and will return for follow with him. (2) Methadone maintenance therapy patient Assessment/Plan: on methadone 165mg daily, seen at methadone clinic will return to clinic for daily dosing (3) Opiate dependence Assessment/Plan: hx of iv drug use, last use 5 years ago drug screen sent and positive for MDBA. Patient denies any recent use. Refused to have repeat urine specimen send. Spoke with patient and he will be required to come in for daily insertion and removal of IV for antibiotic therapy. (4) Prophylactic measure Assessment/Plan: May resume regular diet upon discharge. HgbA1C slightly elevated on admission. Counseled patient on avoiding concentrated sugar - Instructions Diet, Activity, Other Instructions: May resume regular diet upon discharge to home. May resume normal activity as tolerated. Will require IV therapy for another 5 weeks. We will arrange for you to return to the outpatient infusion therapy here to receive daily infusions of ceftriaxone. An IV will be place and removed with each visit - Home Medications Comprehensive Discharge Medication List: Ambulatory Orders Bupropion HCl [Wellbutrin Xl -] 150 mg PO DAILY #30 tab.sr.24h 03/09/18 Methadone HCl 150 mg PO DAILY 03/09/18 Ceftriaxone [Rocephin -] 2 gm IVPB DAILY vial 03/06/19 Nicotine Patch [Nicoderm Patch -] 14 mg TD DAILY patch 03/06/19 Problem List - Problems (1) Cellulitis, finger Code(s): L03.019 - CELLULITIS OF UNSPECIFIED FINGER Qualifiers: Laterality: right Qualified Code(s): L03.011 - Cellulitis of right finger (2) Methadone maintenance therapy patient Code(s): F11.20 - OPIOID DEPENDENCE, UNCOMPLICATED (3) Opiate dependence Code(s): F11.20 - OPIOID DEPENDENCE, UNCOMPLICATED This patient is new to me today: Yes Date on this admission: 03/06/19 Emergency Visit: Yes ED Registration Date: 02/28/19 Care time: The patient presented to the Emergency Department on the above date and was hospitalized for further evaluation of their emergent condition. Critical Care patient: No - Discharge Referral Referred to [facility] No
[2019-03-07] MEDS ORDERED: METHADONE HCL 40 MG DISPERSABLE TABLET ONE (05:18)
[2019-03-07] MEDS ORDERED: METHADONE HCL 5 MG TABLET ONE (05:18)
[2019-03-07] MEDS: METHADONE 160 MG, METHADONE 5 MG PO SCH (05:43)
[2019-03-07] MEDS: INSULIN SLIDING SCALE (NOVOLOG) 1 VIAL SQ SCH (06:11)
[2019-03-07 09:03] LABS: BASO % 1.3 % (0-2.0); EOS % 1.5 % (0-4.5); HEMATOCRIT 39.5 % (35.4-49); HEMOGLOBIN 13.2 GM/dL (11.7-16.9); LYMPH % 22.8 % (8-40); MCH 29.2 pg (25.7-33.7); MCHC 33.5 g/dl (32.0-35.9); MEAN CELL VOLUME 87.1 fl (80-96); MEAN PLT VOLUME 6.7 fl (7.5-11.1); MONO % 6.1 % (3.8-10.2); NEUT % 68.3 % (42.8-82.8); PLATELET COUNT 277 K/MM3 (134-434); RBC 4.53 M/mm3 (4.00-5.60); RDW 14.4 % (11.9-15.9); WHITE BLOOD COUNT 8.5 K/mm3 (4.0-10.0)
[2019-03-07 09:32] LABS: ALBUMIN 4.2 g/dl (3.4-5.0); BLOOD UREA NITROGEN 20.8 mg/dL (7-18); CALCIUM 9.2 mg/dL (8.5-10.1); MAGNESIUM 2.6 mg/dL (1.8-2.4)
[2019-03-07 09:38] LABS: BILIRUBIN,TOTAL 0.4 mg/dL (0.2-1); TOT PROT 8.2 g/dl (6.4-8.2)
[2019-03-07] MEDS ORDERED: DEXTROSE 5%-WATER 100 ML IVPB ONE ×2 (09:40→09:41)
[2019-03-07] MEDS: NICOTINE 14 MG/24 HOURS TOPICAL PATCH TD SCH (09:48)
[2019-03-07] MEDS: CEFTRIAXONE 2 GM in DEXTROSE 5%-WATER 100 ML IVPB SCH (09:48)
[2019-03-07] MEDS: HEPARIN NA (PORCINE) 5,000 UNITS/ML 1ML VIAL SQ SCH (09:48)
--- NOTE | 2019-03-07 12:01 | PN ---
Progress Note, Physician - Current Medication List Current Medications: Active Medications Acetaminophen (Tylenol -) 650 mg PO Q4H PRN PRN Reason: MILD PAIN Last Admin: 03/06/19 23:03 Dose: 650 mg Bupropion HCl (Wellbutrin Xl -) 150 mg PO DAILY [facility] Last Admin: 03/07/19 09:48 Dose: 150 mg Heparin Sodium (Porcine) (Heparin -) 5,000 unit SQ BID [facility] Last Admin: 03/07/19 09:48 Dose: 5,000 unit Sodium Chloride (Normal Saline -) 1,000 mls @ 10 mls/hr IV ASDIR [facility] Last Admin: 03/05/19 16:13 Dose: Not Given Ceftriaxone Sodium 2 gm/ (Dextrose) 100 mls @ 200 mls/hr IVPB DAILY [facility]; Protocol Last Admin: 03/07/19 09:48 Dose: 200 mls/hr Insulin Aspart (Novolog Vial Sliding Scale -) 1 vial SQ ACHS [facility]; Protocol Last Admin: 03/07/19 06:11 Dose: Not Given Ketorolac Tromethamine (Toradol) 10 mg PO Q6HPO PRN PRN Reason: PAIN LEVEL 7 - 10 Stop: 03/08/19 17:59 Methadone HCl 160 mg/ (Methadone HCl 5 mg) 165 mg PO DAILY@0600 [facility] Last Admin: 03/07/19 05:43 Dose: 165 mg Nicotine (Nicoderm Patch -) 14 mg TD DAILY [facility] Last Admin: 03/07/19 09:48 Dose: 14 mg - Objective Vital Signs: Vital Signs Temperature 97.7 F 03/07/19 06:00 Pulse Rate 50 L 03/07/19 06:00 Respiratory Rate 18 03/07/19 06:00 Blood Pressure 104/64 03/07/19 06:00 O2 Sat by Pulse Oximetry (%) 96 03/06/19 21:00 Labs: CBC, BMP 03/07/19 08:40 03/07/19 08:40
[2019-03-07 12:16] VITALS: BP 124/85; PULSE 60; TEMP 98.2
== END 2019-03-07 12:42 | disposition home or self-care (01) | DRG 383 ==
LOC: JER 12:41 → JERBED 16:50 → J8W 23:07
PROVIDERS: ADMIT Internal Medicine; ATTEND Nurse Practitioner Family
DX: L03.012 Cellulitis of left finger (principal); F11.20 Opioid dependence, uncomplicated; F17.210 Nicotine dependence, cigarettes, uncomplicated
CPT/HCPCS: 36415; 73140-TC-LT-FY; 73218-TC-LT; 80048; 80053; 80307; 81003; 82962; 83036; 83735; 85025; 85651; 86140; 87070; 87076; 87186; 87205; 97116-GP; 97161-GP; 99283-25; G0480; J1644; J7030

== ENCOUNTER 2019-03-08 12:07 | Day surgery (SDC) | payer OTHER | END 2019-03-08 14:10 | disposition home or self-care (01) | LOC: JINFUSION 12:07 ==

== ENCOUNTER 2019-03-09 08:28 | Day surgery (SDC) | payer OTHER | END 2019-03-09 10:30 | disposition home or self-care (01) | LOC: JINFUSION 08:28 ==

== ENCOUNTER 2019-03-11 11:58 | Day surgery (SDC) | payer OTHER | END 2019-03-11 13:55 | disposition home or self-care (01) | LOC: JINFUSION 11:58 → J7W 12:03 → JINFUSION 13:55 ==

== ENCOUNTER 2019-03-14 12:52 | Day surgery (SDC) | payer OTHER ==
[2019-03-14] MEDS ORDERED: CEFTRIAXONE 2 GM in DEXTROSE 5%-WATER 100 ML IVPB ONE (13:30)
[2019-03-14 13:50] VITALS: BP 125/77; PULSE 59; TEMP 98.2
== END 2019-03-14 14:41 | disposition home or self-care (01) ==
LOC: JINFUSION 12:52
PROVIDERS: ATTEND Internal Medicine Infectious Disease
DX: M86.9 Osteomyelitis, unspecified (principal); L03.012 Cellulitis of left finger
CPT/HCPCS: 96365

== ENCOUNTER 2019-06-15 04:41 | Emergency (ER) | payer OTHER ==
--- NOTE | 2019-06-15 04:58 | PDOC ---
Attending Attestation - Resident Resident Name: WilbertoDuke - ED Attending Attestation I have performed the following: I have examined & evaluated the patient, The case was reviewed & discussed with the resident, I agree w/resident's findings & plan - HPI HPI: 06/15/19 05:09 see resident hpi - Physicial Exam PE: 06/15/19 05:09 agree with resident exam - Medical Decision Making 06/15/19 05:09 44 yo male with dental pain after biting down on partial and cracking his front tooth toradol in ED, d/c on motrin pt will follow up with his dentist
[2019-06-15 04:59] VITALS: BP 131/84; PULSE 74; TEMP 98; BMI 31.0
[2019-06-15] MEDS ORDERED: KETOROLAC TROMETHAMINE 60 MG/2 ML VIAL IM ONE (05:08)
--- NOTE | 2019-06-15 05:13 | PDOC ---
History of Present Illness - General Chief Complaint: Toothache Stated Complaint: TOOTHACHE Time Seen by Provider: 06/15/19 04:47 History Source: Patient Exam Limitations: No Limitations - History of Present Illness Initial Comments: 06/15/19 19:18 HPI: 44M PMH opiate dependence presenting w/ tooth pain after breaking his right incisor (7th tooth) while putting in partial dentures. Pt used orajel which has relieved his pain. Requesting motrin. Denies f/c, difficulty swallowing, difficulty breathing, cp/sob. Denies renal issues. Past History - Past Medical History Allergies/Adverse Reactions: Allergies Allergy/AdvReac Type Severity Reaction Status Date / Time No Known Allergies Allergy Verified 06/15/19 04:51 Home Medications: Ambulatory Orders Methadone HCl 150 mg PO DAILY 03/09/18 Nicotine Patch [Nicoderm Patch -] 14 mg TD DAILY patch 03/06/19 Ibuprofen 800 mg PO Q8H #12 tablet 06/15/19 COPD: No Seizures: Yes - Surgical History Appendectomy: Yes - Immunization History Immunization Up to Date: Yes - Psycho Social/Smoking Cessation Hx Smoking History: Current every day smoker Have you smoked in the past 12 months: Yes Number of Cigarettes Smoked Daily: 10 If you are a former smoker, when did you quit?: 1 PPD daily Information on smoking cessation initiated: No 'Breaking Loose' booklet given: 03/01/19 Hx Alcohol Use: No Drug/Substance Use Hx: No Substance Use Type: None Hx Substance Use Treatment: No Review of Systems - Review of Systems Able to Perform ROS?: Yes Comments:: 06/15/19 19:19 ROS: CONSTITUTIONAL: Denies F / C HEENT: Denies difficulty breathing or swallowing. Endorses tooth pain. RESP: Denies SOB CARD: Denies chest pain GI: Denies N / V / D, abdominal pain Is the patient limited Niuean proficient: No *Physical Exam - Vital Signs Last Vital Signs Temp Pulse Resp BP Pulse Ox 98.0 F 74 20 131/84 100 06/15/19 04:52 06/15/19 04:52 06/15/19 04:52 06/15/19 04:52 06/15/19 04:52 - Physical Exam Comments: 06/15/19 19:19 PE: GEN: Well appearing, NAD, comfortable. AAOx3 HEENT: NC/AT, EOMI, PERRLA. No facial asymmetry. Moist mucous membranes. Broken 7th tooth (right incisor) w/o bleeding or discharge. Nonerythematous, nonedematous oropharynx. Normal voice. Supple neck w/ FROM. CV: S1/S2, RRR, no m/r/g LUNG: CTAB, no wheezes, crackles, rales, rhonchi. GI: soft, ndnt, +BS, no guarding, no rebound. No masses. EXTREMITIES: No obvious deformities of all extremities. SKIN: warm, dry, normal turgor PSYCH: normal mood and affect NEURO: Moving all extremities well, ambulating w/ normal gait Medical Decision Making - Medical Decision Making 06/15/19 05:17 MDM: 44M c/o tooth pain after breaking 7th tooth while placing partial dentures, requesting motrin. - Toradol - Motrin to pharmacy - [place] home w/ dental f/u Discharge - Discharge Information Problems reviewed: Yes Clinical Impression/Diagnosis: Tooth pain Condition: Stable Disposition: HOME - Admission No - Additional Discharge Information Prescriptions: Ibuprofen 800 mg PO Q8H #12 tablet - Follow up/Referral Referrals: Timothy Bailey MD [Primary Care Provider] - - Patient Discharge Instructions Patient Printed Discharge Instructions: DI for Tooth Decay, DI for Dental Pain Additional Instructions: You were given a Toradol shot in the Emergency Department. Do NOT take any NSAIDS (e.g. aspirin, ibuprofen, naproxen) for 8 hours. We sent a prescription to [facility] pharmacy. Pick it up and take as directed: 1 tablet every 8 hours. Do not exceed this dosing interval! Follow up with your Dentist within the next 1-2 days for your concerns. Return to the nearest Emergency Department if you experience worsening, new, or concerning symptoms. - Post Discharge Activity
[2019-06-15] MEDS ORDERED: KETOROLAC TROMETHAMINE 60 MG/2 ML VIAL ONE (05:15)
== END 2019-06-15 05:21 | disposition home or self-care (01) ==
LOC: JER 04:41
PROC: 3E0233Z Introduction of Anti-inflammatory into Muscle, Percutaneous Approach (ICD-10-PCS; principal; 2019-06-15)
DX: K08.89 Other specified disorders of teeth and supporting structures (principal)
CPT/HCPCS: 99281-25

== ENCOUNTER 2020-04-04 09:55 | Emergency (ER) | payer OTHER ==
[2020-04-04 10:04] VITALS: BP 124/89; PULSE 73; TEMP 97.8; BMI 29.5
[2020-04-04] MEDS ORDERED: IBUPROFEN 600 MG TABLET (FP) PO ONE ×2 (10:24→10:32)
--- NOTE | 2020-04-04 10:38 | PDOC ---
History of Present Illness - General Chief Complaint: Toothache Stated Complaint: ABSCESS Time Seen by Provider: 04/04/20 10:20 History Source: Patient Exam Limitations: No Limitations - History of Present Illness Initial Comments: 04/04/20 10:34 44-year-old male denies past medical history presents complaining of toothache x 3 days. Patient denies trauma, fever, chills, facial swelling, headache, ear pain, chest pain, shortness of breath or any other complaint. Patient took ibuprofen 600 mg last night with minimal relief. Reports he has a dental appointment scheduled in 1 month. ROS: as above PE: GENERAL: well-appearing, NAD HEAD: NCAT Dental: Small pus pocket noted above tooth #8, no fluctuance or swelling noted to gum area, multiple missing teeth EYES: Pupils equal, round and reactive to light, sclera anicteric, conjunctiva clear ENT: pharynx: no erythema, no exudate, uvula midline NECK: supple CHEST: nontender RESP: clear, no w/r/r CARDIO: rrr, no m/g/r ABD: +BS, soft, nontender, non distended BACK: no midline spinal ttp, no CVAT EXTREMITIES: Normal range of motion, no edema NEUROLOGICAL: Normal speech, normal gait SKIN: Warm, Dry Is this a multiple visit Asthma Patient?: No Past History - Medical History Allergies/Adverse Reactions: Allergies Allergy/AdvReac Type Severity Reaction Status Date / Time No Known Allergies Allergy Verified 04/04/20 10:01 Home Medications: Ambulatory Orders Methadone HCl 150 mg PO DAILY 03/09/18 Nicotine Patch [Nicoderm Patch -] 14 mg TD DAILY patch 03/06/19 Ibuprofen 800 mg PO Q8H #12 tablet 06/15/19 Amoxicillin - [Amoxicillin 500mg Capsule -] 500 mg PO BID #14 capsule 04/04/20 Ibuprofen 600 mg PO Q6H #20 tablet 04/04/20 COPD: No Seizures: Yes - Surgical History Appendectomy: Yes - Immunization History Immunization Up to Date: Yes - Psycho-Social/Smoking History Smoking History: Never smoked Have you smoked in the past 12 months: Yes Number of Cigarettes Smoked Daily: 10 If you are a former smoker, when did you quit?: 1 PPD daily Information on smoking cessation initiated: No 'Breaking Loose' booklet given: 03/01/19 - Substance Abuse Hx (Audit-C & DAST Scrn) How often the patient has a drink containing alcohol: Never Score: In Men: 4 or > Positive; In Women: 3 or > Positive: 0 Screen Result (Pos requires Nsg. Audit-10AR): Negative In the last yr the pt used illegal drug/Rx for NonMed reason: No Score: Yes response is considered Positive: 0 Screen Result (Positive result requires Nsg. DAST-10): Negative *Physical Exam - Vital Signs Last Vital Signs Temp Pulse Resp BP Pulse Ox 97.8 F 73 17 124/89 96 04/04/20 10:02 04/04/20 10:02 04/04/20 10:02 04/04/20 10:02 04/04/20 10:02 Medical Decision Making - Medical Decision Making 04/04/20 10:37 44-year-old male denies past medical history presents complaining of toothache x 3 days. Patient denies trauma, fever, chills, facial swelling, headache, ear pain, chest pain, shortness of breath or any other complaint. Patient took ibuprofen 600 mg last night with minimal relief. Reports he has a dental appointment scheduled in 1 month. Prescription sent to pharmacy for amoxicillin 500 mg twice daily x7 days Advised patient to follow-up with dentist Strict return precautions Discharge - Discharge Information Problems reviewed: Yes Clinical Impression/Diagnosis: Tooth abscess Condition: Stable Disposition: HOME - Admission No - Additional Discharge Information Prescriptions: Amoxicillin - [Amoxicillin 500mg Capsule -] 500 mg PO BID #14 capsule Ibuprofen 600 mg PO Q6H #20 tablet - Follow up/Referral Referrals: Joan Bailey [Primary Care Provider] - - Patient Discharge Instructions Additional Instructions: Follow-up with your dentist as soon as possible Take amoxicillin as directed Take ibuprofen 600 mg every 6 hours as needed for pain If you develop fever, chills, worsening pain despite taking antibiotics, chest pain or any concerning symptoms return to ED - Post Discharge Activity
== END 2020-04-04 10:40 | disposition home or self-care (01) ==
LOC: JERFT 09:55
DX: K04.7 Periapical abscess without sinus (principal)
CPT/HCPCS: 99283-25

== ENCOUNTER 2020-06-05 12:27 | Emergency (ER) | payer OTHER ==
--- NOTE | 2020-06-05 12:42 | PDOC ---
Rapid Medical Evaluation Time Seen by Provider: 06/05/20 12:39 Medical Evaluation: Allergies Allergy/AdvReac Type Severity Reaction Status Date / Time No Known Allergies Allergy Verified 04/04/20 10:01 06/05/20 12:39 I have performed a brief in person evaluation of this patient. CC: right thigh pain s/p testosterone injection to right vastus lateralis PE: tightness to right thigh. No erythema. Orders: nothing Patient will proceed to ED for further evaluation. Discharge Disposition - Diagnosis Thigh pain - Referrals - Patient Instructions - Post Discharge Activity
[2020-06-05 12:47] VITALS: BP 138/87; PULSE 91; TEMP 97.9; BMI 27.6
--- OUTSIDE RECORDS SUMMARY | 2020-06-05 12:57 | XMS ---
:1975 Author Organization [facility] Support Name Relationship Address Phone YUNIEL LAWSON [address] [place] [address] UE Unavailable Unavailable Unavailable DAYA CONTRERAS MOTHER [address] PH [phone] [place] [address] DAYA CONTRERAS Mother [address] [place] [address] Re-disclosure Warning The records that you are about to access may contain information from federally- assisted alcohol or drug abuse programs. If such information is present, then the following federally mandated warning applies: This information has been disclosed to you from records protected by federal confidentiality rules (42 CFR part 2). The federal rules prohibit you from making any further disclosure of this information unless further disclosure is expressly permitted by the written consent of the person to whom it pertains or as otherwise permitted by 42 CFR part 2. A general authorization for the release of medical or other information is NOT sufficient for this purpose. The Federal rules restrict any use of the information to criminally investigate or prosecute any alcohol or drug abuse patient.The records that you are about to access may contain highly sensitive health information, the redisclosure of which is protected by Article 27-F of the [facility] Public Health law. If you continue you may haveaccess to information: Regarding HIV / AIDS; Provided by facilities licensed or operated by the [facility] Office of Mental Health; or Provided by the [facility] Office for People With Developmental Disabilities. If such information is present, then the following [facility] mandated warning applies: This information has been disclosed to you from confidential records which are protected by state law. State law prohibits you from making any further disclosure of this information without the specific written consent of the person to whom it pertains, or as otherwise permitted by law. Any unauthorized further disclosure in violation of state law may result in a fine or longterm sentence or both. A general authorization for the release of medical or other information is NOT sufficient authorization for further disclosure. Insurance Providers Payer name Policy type Policy ID Covered Covered constitution party's Policy P michael / Coverage constitution party ID relationship to Manuel Inf ormation type manuel [facility] MEDICAID [id number] SP [id number] [employer] [id number] SP [id number] [employer] [id number] SP [id number] [employer] [id number] SP [id number] METHADONE [id number] SP [id number] MAINTENANCE PROGRAM [facility] MEDICAID [id number] SP [id number] COMM PLAN SAFE INS [id number] SP [id number]
--- NOTE | 2020-06-05 13:08 | PDOC ---
History of Present Illness - General Chief Complaint: Pain Stated Complaint: RT LEG PAIN Time Seen by Provider: 06/05/20 12:39 - History of Present Illness Initial Comments: 06/05/20 13:04 45-year-old male on hormone replacement therapy for low testosterone level presents for evaluation of right thigh pain after testosterone injection self- administered 2 days ago. No systemic symptoms on the increasing right thigh pain. Past History - Medical History Allergies/Adverse Reactions: Allergies Allergy/AdvReac Type Severity Reaction Status Date / Time No Known Allergies Allergy Verified 06/05/20 12:47 Home Medications: Ambulatory Orders Amoxicillin - [Amoxicillin 500mg Capsule -] 500 mg PO BID #14 capsule 04/04/20 Ibuprofen 600 mg PO Q6H #20 tablet 04/04/20 Cephalexin [Keflex] 500 mg PO QID #40 capsule 06/05/20 Sulfamethoxazole/Trimethoprim [Bactrim Ds -] 1 tab PO BID #14 tablet 06/05/20 COPD: No Seizures: Yes - Surgical History Appendectomy: Yes - Immunization History Immunization Up to Date: Yes - Psycho-Social/Smoking History Smoking History: Never smoked Have you smoked in the past 12 months: No Number of Cigarettes Smoked Daily: 10 If you are a former smoker, when did you quit?: 1 PPD daily Information on smoking cessation initiated: No 'Breaking Loose' booklet given: 03/01/19 - Substance Abuse Hx (Audit-C & DAST Scrn) How often the patient has a drink containing alcohol: Never Score: In Men: 4 or > Positive; In Women: 3 or > Positive: 0 Screen Result (Pos requires Nsg. Audit-10AR): Negative In the last yr the pt used illegal drug/Rx for NonMed reason: No Score: Yes response is considered Positive: 0 Screen Result (Positive result requires Nsg. DAST-10): Negative Review of Systems - Review of Systems Constitutional: No: Fever Musculoskeletal: Yes: See HPI, Muscle Pain Integumentary: Yes: Erythema *Physical Exam - Vital Signs Last Vital Signs Temp Pulse Resp BP Pulse Ox 97.9 F 91 H 17 138/87 99 06/05/20 12:41 06/05/20 12:41 06/05/20 12:41 06/05/20 12:41 06/05/20 12:41 - Physical Exam 10/21/20 13:05 There is firm nonfluctuant area at the distal third of the right thigh and the subcutaneous tissue surrounding the vastus lateralis. There is mild surrounding erythema without induration erythema is mild. There is no sensitivity. Medical Decision Making - Medical Decision Making 06/05/20 13:06 We will treat for early cellulitis. Follow-up with general surgery discussed with patient without fail. Bactrim and Keflex started encouraged warm compresses I have reviewed the pathophysiology with the patient. They are in agreement wit h the treatment plan all questions were answered to their satisfaction. Understanding for follow-up without fail was also conveyed to the patient. Again they are in agreement. Discharge - Discharge Information Problems reviewed: Yes Clinical Impression/Diagnosis: Thigh pain, Cellulitis Condition: Stable Disposition: HOME - Admission No - Additional Discharge Information Prescriptions: Sulfamethoxazole/Trimethoprim [Bactrim Ds -] 1 tab PO BID #14 tablet Cephalexin [Keflex] 500 mg PO QID #40 capsule - Follow up/Referral Referrals: Timothy Bailey MD [Primary Care Provider] - Kike Brown MD [Staff Physician] - - Patient Discharge Instructions Additional Instructions: Please start the antibiotics and take them as directed and finish the entire course. Return to the emergency room for any further issues. Without fail follow-up with general surgery in 1 to 2 days for further evaluation and treatme nt options. If you cannot get an appointment with general surgery return to the emergency room in 48 hours for a wound recheck. Sooner if problems develop. Tylenol and Motrin as directed for pain. Do not inject in the area of your right thigh. Do not use that site going forward. - Post Discharge Activity
== END 2020-06-05 13:15 | disposition home or self-care (01) ==
LOC: JERFT 12:27
DX: M79.651 Pain in right thigh (principal)
CPT/HCPCS: 99284-25

== ENCOUNTER 2021-07-20 18:31 | Emergency (ER) | payer OTHER ==
[2021-07-20 18:36] VITALS: BP 153/80; PULSE 60; TEMP 97; BMI 26.6
[2021-07-20] MEDS ORDERED: KETOROLAC TROMETHAMINE 30 MG/1 ML VIAL IM ONE (20:37)
[2021-07-20] MEDS ORDERED: KETOROLAC TROMETHAMINE 30 MG/1 ML VIAL ONE (20:50)
[2021-07-20] MEDS ORDERED: LIDOCAINE HCL 2% JELLY (30 ML/TUBE) TP ONE (21:05)
[2021-07-20] MEDS ORDERED: LIDOCAINE HCL 2% JELLY 10 ML CARTRIDGE ONE (21:07)
== END 2021-07-20 21:13 | disposition home or self-care (01) ==
LOC: JER 18:31 → JERFT 18:31
PROC: 0C9 Mouth and Throat, Drainage (ICD-10-PCS; principal; 2021-07-20)
PROC: 3E023GC Introduction of Other Therapeutic Substance into Muscle, Percutaneous Approach (ICD-10-PCS; 2021-07-20)
DX: K12.2 Cellulitis and abscess of mouth (principal); K02.9 Dental caries, unspecified
CPT/HCPCS: 99284-25

== ENCOUNTER → 2021-11-14 | Emergency (ER) | payer OTHER ==
[2021-11-14 12:13] VITALS: BP 161/85; PULSE 77; TEMP 98.1; BMI 26.6
== END ==
LOC: JER 11:38
DX: S90.852A Superficial foreign body, left foot, initial encounter (principal); Y99.9 Unspecified external cause status
CPT/HCPCS: 99281-25

== ENCOUNTER 2022-05-31 18:00 | Emergency (ER) | payer OTHER ==
[2022-05-31 18:03] VITALS: BP 160/70; PULSE 55; RESP 18; TEMP 98.2; BMI 23.6
[2022-05-31] MEDS ORDERED: KETOROLAC TROMETHAMINE 60 MG/2 ML VIAL IM ONE (19:17)
[2022-05-31] MEDS ORDERED: AMOX TR/POT CLAV 875MG/125MG TABLETS (FP) PO ONE (19:17)
[2022-05-31] MEDS ORDERED: AMOX TR/POT CLAV 875MG/125MG TABLETS (FP) ONE (19:30)
[2022-05-31] MEDS ORDERED: KETOROLAC TROMETHAMINE 30 MG/1 ML VIAL ONE (19:30)
== END 2022-05-31 19:42 | disposition home or self-care (01) ==
LOC: JER 18:00 → JERFT 18:00
PROC: 3E023GC Introduction of Other Therapeutic Substance into Muscle, Percutaneous Approach (ICD-10-PCS; principal; 2022-05-31)
DX: K04.7 Periapical abscess without sinus (principal)
CPT/HCPCS: 96372; 99284-25

== ENCOUNTER 2024-02-24 09:18 | Emergency (ER) | payer OTHER ==
[2024-02-24 09:27] VITALS: BP 124/79; PULSE 52; RESP 18; TEMP 98.2; BMI 23.6
[2024-02-24] MEDS ORDERED: IBUPROFEN 600 MG TABLET (FP) PO ONE (10:19)
[2024-02-24] MEDS ORDERED: CEPHALEXIN MONOHYDRATE 500 MG CAPSULE (UD) ONE (10:19)
[2024-02-24] MEDS: CEPHALEXIN MONOHYDRATE 500 MG CAPSULE (UD) PO ONE (10:23)
[2024-02-24] MEDS: IBUPROFEN 600 MG TABLET (FP) PO ONE (10:23)
== END 2024-02-24 10:31 | disposition home or self-care (01) ==
LOC: JER 09:18
DX: S91.105A Unspecified open wound of left lesser toe(s) without damage to nail, initial encounter (principal); L84 Corns and callosities; L02.612 Cutaneous abscess of left foot; X58.XXXA Exposure to other specified factors, initial encounter
CPT/HCPCS: 99283-25

== ENCOUNTER 2024-09-03 23:11 | Emergency (ER) | payer OTHER ==
[2024-09-03 23:22] VITALS: BP 117/71; PULSE 49; RESP 18; TEMP 97.6; BMI 23.6
== END 2024-09-04 01:05 | disposition home or self-care (01) ==
LOC: JER 23:11
DX: R42 Dizziness and giddiness (principal); R00.1 Bradycardia, unspecified; R11.2 Nausea with vomiting, unspecified; M79.10 Myalgia, unspecified site; R50.9 Fever, unspecified; J45.901 Unspecified asthma with (acute) exacerbation; Z20.822 Contact with and (suspected) exposure to COVID-19
CPT/HCPCS: 0241U-QW; 93005; 93010; 99283-25